=== PATIENT | female | born 1975 | race Caucasian/White ===

== ENCOUNTER 2024-08-27 22:48 | Emergency (ER) | payer MEDICARE, MEDICAID, SELFPAY ==
--- NOTE | 2024-08-27 | ECG_ITS ---
Test Reason : PALPITATIONS Blood Pressure : */* mmHG Vent. Rate : 97 BPM Atrial Rate : 97 BPM P-R Int : 146 ms QRS Dur : 80 ms QT Int : 336 ms P-R-T Axes : 58 -5 15 degrees QTcB Int : 426 ms Normal sinus rhythm Nonspecific T wave abnormality Abnormal ECG When compared with ECG of 03-Jun-2017 06:57, T wave inversion now evident in Lateral leads Referred By: Generic ED Physician Electronically Signed By: LILIANA BURNETT
[2024-08-27 22:51] VITALS: BP 186/85; PULSE 106; RESP 18; TEMP 36.7; O2SAT 95; BMI 37.2
[2024-08-27 23:11] LABS: MANUAL DIFF FLAG NO
[2024-08-27 23:12] LABS: Basophils Percent Auto 0.5 % (0-2); Eosinophils Percent Auto 0.3 % (0-4); Hemoglobin 13.5 g/dl (12.0-16.0); Imm Gran Abs Auto 0.02 X10*3/uL (0.00-0.03); Imm Gran Pct Auto 0.3 % (0.0-0.4); Lymphocytes Absolute Auto 1.8 X10*3/uL (1.2-4.9); Lymphocytes Percent Auto 24.8 % (20-40); Mean Corpuscular HGB Conc 33.8 g/dl (31.0-35.0); Mean Corpuscular Hemoglobin 26.7 pg (27.0-33.0); Mean Corpuscular Volume 79.2 fL (80.0-98.0); Mean Platelet Volume 9.2 fL (9.4-12.3); Monocytes Absolute Auto 0.4 X10*3/uL (0.1-1.2); Monocytes Percent Auto 5.8 % (2-11); Neutrophils Percent Auto 68.3 % (45-73); Platelet Count 365 X10*3/uL (160-400); Red Blood Count 5.05 X10*6/uL (4.20-5.50); White Blood Count 7.4 X10*3/uL (4.8-10.8)
[2024-08-27 23:27] LABS: Alanine Aminotransferase 15 U/L (0-31); Albumin Level 4.4 g/dL (3.5-5.0); Alkaline Phosphatase 83 U/L (39-117); Anion Gap 12 (12-20); Aspartate Amino Transferase 23 U/L (5-31); Bilirubin Total 0.4 mg/dL (0.0-1.0); Blood Urea Nitrogen 6 mg/dL (9-16); Calcium 9.5 mg/dL (8.4-10.2); Carbon Dioxide 28 mmol/L (22-29); Chloride 105 mmol/L (96-108); Creatinine Clr Calc Pharmacy 93.3; Estimated Glomerular Filt Rate > 60; Glucose Random 115 mg/dL (60-115); Lipase 22 U/L (8-78); Magnesium 2.2 mg/dL (1.6-2.6); Potassium 4.1 mmol/L (3.3-5.1); Sodium 141 mmol/L (135-145); Total Protein 7.5 g/dL (6.5-8.0)
[2024-08-27 23:38] LABS: Troponin-I High Sensitivity < 2.7 ng/L (<3.5-17.0)
[2024-08-28] MEDS: Acetaminophen 325 MG TABLET 975 MG PO (01:41)
[2024-08-28 02:28] VITALS: BP 156/89; PULSE 100; RESP 20; TEMP 36.4; O2SAT 99
--- OUTSIDE RECORDS SUMMARY | 2024-08-28 02:48 | XMS_ITS ---
Author Name [facility] Organization Unknown History of Medication Use Medication Directions Dispensed Refills Start Date End Date Stat MAGNESIUM CITRATE ORAL Take by mouth. 06/25/2024 08/18/9999 active phenazopyridine (PYRIDIUM) 100 mg tablet Take 1 tablet (100 mg total) by mouth. 06/25/2024 08/18/9999 active ondansetron (ZOFRAN) 4 mg tablet Take 1 tablet (4 mg total) by mouth every 8 (eight) hours if needed. 06/25/2024 08/18/9999 active naproxen (NAPROSYN) 500 mg tablet Take 1 tablet (500 mg total) by mouth. 06/25/2024 08/18/9999 active aluminum-magnesium hydroxide-simethicone (MAALOX) 200-200-20 mg/5 mL suspension Take 15 mL by mouth. 06/25/2024 08/18/9999 active pantoprazole (PROTONIX) 40 mg EC tablet Take 1 tablet (40 mg total) by mouth. 06/25/2024 08/18/9999 active tiZANidine (ZANAFLEX) 2 mg tablet Take 1 tablet (2 mg total) by mouth. 06/25/2024 08/18/9999 active metoprolol succinate (TOPROL-XL) 25 mg 24 hr tablet Take 0.5 tablets (12.5 mg total) by mouth. 06/25/2024 08/18/9999 active oxyCODONE-acetaminophe n (PERCOCET) 5-325 mg per tablet Take 1 tablet by mouth. 06/25/2024 08/18/9999 active Problems Problem Status Onset Date Problem Type Date of Resolution Source Angio-edema active 2020-06-30 ProblemAct [facility] Chronic right-sided low back pain with right-sided sciatica active 2019-12-05 ProblemAct [facility] Obesity active 2020-12-07 ProblemAct [facility] Osteoarthritis of lumbar spine active 2023-03-01 ProblemAct [facility] Epigastric pain active 2024-06-[address] [facility] Mixed hyperlipidemia active 2023-03-01 ProblemAct [facility] Urinary tract infection without hematuria, site unspecified active EncounterDiagnosisAct [facility] LEOBARDO (obstructive sleep apnea) active 2015-09-07 ProblemAct [facility] Pelvic pain active 2021-04-11 ProblemAct [facility] 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 ProblemAct [facility] Recurrent urticaria active 2020-06-30 ProblemAct [facility] Hypothyroidism active 2015-09-07 ProblemAct [facility] Hypertension active 2015-09-07 ProblemAct [facility] Chronic headache disorder active 2017-06-10 ProblemAct [facility] Seasonal allergic conjunctivitis active 2020-06-30 ProblemAct [facility] IBS (irritable bowel syndrome) active 2015-09-09 ProblemAct [facility] GERD (gastroesophageal reflux disease) active 2017-03-04 ProblemAct [facility] Seasonal allergies active 2020-02-02 ProblemAct [facility] Seasonal allergic rhinitis due to pollen active 2020-06-30 ProblemAct [facility] Lumbar disc herniation with radiculopathy active 2017-09-06 ProblemAct [facility] Syncope and collapse active 2023-06-03 ProblemAct [facility] Microcytic anemia active 2018-05-05 ProblemAct [facility] Diverticulosis active 2008-02-09 ProblemAct [facility] Carpal tunnel syndrome active 2017-05-08 ProblemAct [facility] Balance problem active 2023-12-[address] [facility] Bacterial vaginosis active 2021-04-11 ProblemAct [facility] ADD (attention deficit disorder) active 2015-09-07 ProblemAct [facility] Major depression active 2015-09-07 ProblemAct C [facility] Palpitation active 2023-05-29 ProblemAct [facility] Immunizations Vaccine Date Source Lot Number Status Influenza trivalent, 0.5mL, preservative free (Fluarix; FluLaval; Fluzone) ages 6mo and older (Afluria) 3 years and older [facility] B (Gmgzoer-Y-Zfzts , Recombivax HB-Adult) 19yo and older 02/22/2006 [facility] [id number] complet ed Influenza trivalent, 0.5mL, preservative free (Fluarix; FluLaval; Fluzone) ages 6mo and older (Afluria) 3 years and older 05/20/2013 [facility] completed Influenza trivalent, 0.5mL, preservative free (Fluarix; FluLaval; Fluzone) ages 6mo and older (Afluria) 3 years and older 05/08/2011 [facility] completed Td Tetanus diptheria (Tdvax) 7yo and older 07/27/2009 [facility] completed PPD Test 12/09/2007 [facility] [id number] completed Influenza trivalent, 0.5mL, preservative free (Fluarix; FluLaval; Fluzone) ages 6mo and older (Afluria) 3 years and older 08/15/2012 [facility] Tdap Tetanus diptheria acell ular pertussis (Boostrix; Adacel) 7yo and older 10/17/2011 [facility] completed Pneumococcal polysaccharide 23 valent (Pneumovax 23) 2yo and older 10/30/2010 [facility] com pleted PPD Test 02/22/2006 [facility] [id number] completed Td Tetanus diptheria (Tdvax) 7yo and older 02/27/2020 [facility] [id number] completed Influenza trivalent, 0.5mL, preservative free (Fluarix; FluLaval; Fluzone) ages 6mo and older (Afluria) 3 years and older 08/25/2014 [facility]
[2024-08-28 03:34] VITALS: BP 157/94; PULSE 90
[2024-08-28 03:35] VITALS: BP 152/97; BP 169/100; PULSE 103; PULSE 95
--- NOTE | 2024-08-28 03:44 | ED.ARRPALP ---
HPI - Arrhythmia/Palpitations General Chief Complaint: Arrhythmia/Palpitations Stated Complaint: irregular heart beat Time Seen by Provider: 08/28/24 03:07 Source: patient Mode of arrival: ambulatory Limitations: no limitations History of Present Illness ED Provider: HPI narrative: Patient with palpitation episodes been seen by malt specifications control assistant questionable POTS started on metoprolol comes here for similar episodes of palpitation heart rate ranging between 120-130 no dizziness no passing out episode Related Data Allergies Allergy/AdvReac Type Severity Reaction Status Date / Time benzoin [BENZOIN] Allergy Intermediate BURNING Verified 08/27/24 22:55 Strip Ease Adhesive Remover Allergy Unknown Unknown Uncoded 08/27/24 22:55 Review of Systems Review of Systems: Yes all other systems are reviewed and are negative [facility] Social History Social History Advance Directives: No Do you have a plan to hurt others: No Plan Physical Exam Vital Signs: Vital Signs: Last Vital Signs Temp 97.9 F 08/28/24 03:54 Pulse 103 H 08/28/24 03:54 Resp 20 08/28/24 03:54 BP 169/100 H 08/28/24 03:54 Pulse Ox 98 08/28/24 03:54 O2 Del Method Room Air 08/28/24 03:54 BMI result Body Mass Index 37.2 Appearance: Alert. Oriented X3. No acute distress. Eyes: PERRLA, No Nystagmus ENT: Pharynx normal. Oral Mucosa moist Neck: Normal inspection. Neck supple. CVS: Normal heart rate and rhythm. Pulses normal. Respiratory: No respiratory distress. Equal air entry bilateral, no wheezing/rales/rhonchi Abdomen: Soft and nontender. Bowel sounds are present, no mass palpable, no CVA tenderness Skin: Skin warm and dry. Normal skin color. Normal skin turgor. Extremities: No lower extremity edema. No calf tenderness Neuro: Oriented X 3. No motor deficit. No sensory deficit.No cerebellar signs , cranial nerves II-XII intact Medications Administered Discontinued Medications Generic Name Dose Route Start Last Admin Trade Name Freq PRN Reason Stop Dose Admin Acetaminophen 975 mg 08/28/24 01:40 08/28/24 01:41 Acetaminophen 325 Mg Tablet PO 08/28/24 01:41 975 mg ONCE ONE Administration Medical Decision Making Medical Decision Making [facility] Narrative: Patient with orthostatic tachycardia likely POTS syndrome already on metoprolol and advised to follow with malt specifications control assistant and drink plenty of fluids Lab Data MDM Lab Attestation statement: I reviewed the patient's lab results. 08/27/24 22:59 08/27/24 22:59 Labs: Lab Results 08/27/24 Range/Units 22:59 WBC 7.4 (4.8-10.8) X10*3/uL RBC 5.05 (4.20-5.50) X10*6/uL Hgb 13.5 (12.0-16.0) g/dl Hct 40.0 (37.0-47.0) % MCV 79.2 L (80.0-98.0) fL MCH 26.7 L (27.0-33.0) pg MCHC 33.8 (31.0-35.0) g/dl RDW 13.0 (11.0-16.0) % Plt Count 365 (160-400) X10*3/uL MPV 9.2 L (9.4-12.3) fL Immature Gran % (Auto) 0.3 (0.0-0.4) % Neut % (Auto) 68.3 (45-73) % Lymph % (Auto) 24.8 (20-40) % [place] % (Auto) 5.8 (2-11) % Eos % (Auto) 0.3 (0-4) % Baso % (Auto) 0.5 (0-2) % Lymph # (Auto) 1.8 (1.2-4.9) X10*3/uL [place] # (Auto) 0.4 (0.1-1.2) X10*3/uL Eos # (Auto) 0.0 (0.0-0.4) X10*3/uL Baso # (Auto) 0.0 (0.0-0.2) X10*3/uL Abs Immat Gran (auto) 0.02 (0.00-0.03) X10*3/uL Absolute Neuts (auto) 5.0 (2.0-8.3) x10*3/uL Absolute Nucleated RBC 0.000 (0.0-0.012) X10*3/uL Nucleated RBC % (auto) 0.0 (0.0-0.2) /100WBC Sodium 141 (135-145) mmol/L Potassium 4.1 (3.3-5.1) mmol/L Chloride 105 (96-108) mmol/L Carbon Dioxide 28 (22-29) mmol/L Anion Gap 12 (12-20) BUN 6 L (9-16) mg/dL Creatinine 0.69 (0.5-1.4) mg/dL Estim Creat Clear Calc 93.3 Estimated GFR > 60 Random Glucose 115 (60-115) mg/dL Calcium 9.5 (8.4-10.2) mg/dL Magnesium 2.2 (1.6-2.6) mg/dL Total Bilirubin 0.4 (0.0-1.0) mg/dL AST 23 (5-31) U/L ALT 15 (0-31) U/L Alkaline Phosphatase 83 (39-117) U/L Troponin I High Sens < 2.7 (<3.5-17.0) ng/L Total Protein 7.5 (6.5-8.0) g/dL Albumin 4.4 (3.5-5.0) g/dL Lipase 22 (8-78) U/L Independent Interpretation Interpretation: Normal sinus rhythm heart rate 97 beats per minute normal intervals normal axis no acute ST-T no acute ischemia Discharge Plan Discharge Clinical Impression: Palpitations, POTS (postural orthostatic tachycardia syndrome) Patient Disposition: Home, Self-Care Instructions: Heart Palpitations (DC) Additional Instructions: Likely have POTS Drink plenty of fluids and continue metoprolol and follow up malt specifications control assistant Interventions: ED Discharge Assessment Last Done: 08/28/24 03:54 Discharge Date/Time: 08/28/24 03:55 Print Language: Slovak
[2024-08-28 03:54] VITALS: BP 169/100; PULSE 103; RESP 20; TEMP 36.6; O2SAT 98
== END 2024-08-28 03:55 | disposition home or self-care (01) ==
PROVIDERS: Emergency Provider Internal Medicine; PCP Internal Medicine
DX: I49.9 Cardiac arrhythmia, unspecified (principal); G90.A Postural orthostatic tachycardia syndrome [POTS]; R00.2 Palpitations; Z79.899 Other long term (current) drug therapy
CPT/HCPCS: 36415; 80053; 83690; 83735; 84484; 85025; 93005; 99284

== ENCOUNTER → 2024-08-27 22:57 | Outpatient (BNV) | payer MEDICARE, MEDICAID, SELFPAY | PROVIDERS: Emergency Provider Internal Medicine; PCP Internal Medicine; Visit Provider Internal Medicine | DX: R94.31 Abnormal electrocardiogram [ECG] [EKG] (principal) | CPT/HCPCS: 93010 ==

== ENCOUNTER 2025-03-08 10:10 | Emergency (ER) | payer OTHER, SELFPAY ==
--- NOTE | ~2025-03-08 | XR_ITS ---
EXAMINATION: XR CHEST 1 VIEW HISTORY: chest pain COMPARISON: Comparison is made with the prior examination dated 01/14/2018. FINDINGS: A single AP portable view of the chest performed at 11:29 AM is submitted. The lungs are expanded and clear. There is no pleural effusion, pneumothorax, or pulmonary vascular congestion. The heart is normal in size. The bones are intact. XR/XR chest 1V IMPRESSION: No acute cardiopulmonary abnormality. Electronically signed by: Mikel Rider MD 03/08/2025 11:29 AM EDT
--- NOTE | 2025-03-08 10:17 | ECG_ITS ---
Test Reason : sob Blood Pressure : */* mmHG Vent. Rate : 93 BPM Atrial Rate : 93 BPM P-R Int : 152 ms QRS Dur : 80 ms QT Int : 318 ms P-R-T Axes : 44 4 22 degrees QTcB Int : 395 ms Normal sinus rhythm Nonspecific T wave abnormality Abnormal ECG When compared with ECG of 27-Aug-2024 22:57, Nonspecific T wave abnormality has replaced inverted T waves in Lateral leads Referred By: Generic ED Physician Electronically Signed By: Mg Chan
[2025-03-08 10:33] VITALS: BP 148/89; PULSE 91; RESP 19; TEMP 37.1; O2SAT 94; BMI 38.4
[2025-03-08 10:39] VITALS: BP 148/89; PULSE 91; PULSE 92; RESP 19; TEMP 37.1; O2SAT 94
--- NOTE | 2025-03-08 10:57 | PC.NURSE ---
49 F presents to Ed with 2/10 R sided chest pain, SOB since this morning. Hx palpitations. Sts has felt dizzy today and feels off. A+OX4 and ambulatory. RR even and unlabored, lung sounds clear.
--- NOTE | 2025-03-08 10:57 | ED.CHESTPAIN ---
HPI - Chest Pain General Chief Complaint: Chest Pain Stated Complaint: dizziness and heart palpitation Time Seen by Provider: 03/08/25 10:57 Source: patient and RN notes reviewed Mode of arrival: ambulatory Limitations: no limitations History of Present Illness ED Provider: Theodora Jay PA-C HPI narrative: 49-year-old female history significant for GERD presenting to the emergency department today for evaluation of chest discomfort and palpitations with lightheadedness that isn't has been occurring over the last day. Few days ago patient was experiencing some indigestion and took some Maalox and it feel better this occurred after having a chicken wrap. Similar feeling occurred around 04:00 this morning that lasted for around a minute substernal region that did not radiate anywhere which patient is having a hard time describing it was not sharp. She pushed on her chest which did not make it worse but as it only lasted a minute and went away completely she was able to fall back asleep. When she woke up this morning she had her normal routine she felt healthy and then while she was at work sitting down she suddenly fell off almost like out of body with lightheadedness was then was associated with palpitations the lasted for few sec. patient got up to go to the bathroom and had both avoid and then a bowel movement in an upon walking back to go back to her desk she felt lightheaded again but not in the sense that she felt like she was going to pass out or that the room is spinning. Palpitations occurred again. Patient has been told in the past that she had anemia but not needed to be treated she followed up with a otr flatbed driver who ruled out any kidney causes of it she was told that she had a massive for in her kidney but was not concerning she has not followed up on this. Patient does endorse more polyuria polydipsia but no dysuria or vaginal symptoms or concern for any STDs. She denies feeling sick she has no fevers and no chills and no night sweats no coughing or shortness of breath no abdominal discomfort no nausea or vomiting no diarrhea. No recent falls or trauma no recent infections. Last night she had a meal and felt fine before going to bed. She feels 2/10 chest pain central since this morning and came here for this reason. It is not worsened by deep inspiration but mother reproducible symptom would be the lightheadedness with changing positions. ED chart was reviewed back in August of this year patient was seen in the ED for palpitations in this note it was noted that the dental nurse saw her and had diagnosed her with questionable pots and started her on metoprolol. Patient continues to take this medication Related Data Allergies Allergy/AdvReac Type Severity Reaction Status Date / Time benzoin (BENZOIN) Allergy Intermediate BURNING Verified 03/08/25 10:35 Strip Ease Adhesive Remover Allergy Unknown Unknown Uncoded 03/08/25 10:35 Review of Systems Review of Systems: Yes all other systems are reviewed and are negative PMFSH Past Medical History Attestation statement: The following information was validated with the patient. Source: old records reviewed and nursing notes reviewed Social History Social History Smoked in Last 30 Days: No Use of substances other than those prescribed or required for medical reasons: No Advance Directives: No Advance Directives Information Provided: Yes Do you have a plan to hurt others: No Plan Patient : No Physical Exam Exam: Exam: General: Appears in no acute distress, appears well nourished body habitus is overweight, appears stated age. No septic or ill-appearing. Vitals reviewed normal, PMH/Social and Surgical hx reviewed including allergies and current medications. - reviewed for prior visits here and reviewed as it pertained to similar chief complaint discussed in HPI. Head: Normocephalic, no obvious trauma or skin lesions noted. Eyes: EOMI, conjunctivae and sclerae are clear not pale ENMT: moist oral mucosa, uvula is midline no trismus Neck: trachea midline no lymphadenopathy Cardiovascular: peripheral perfusion normal, Regular heart rate regular rhythm Respiratory: no respiratory distress no chest wall tenderness lungs clear to auscultation bilaterally Abdomen: nondistended obese nontender Extremities: warm and moving without difficulty Psych: Cooperative Neuro: Alert and oriented. Vital Signs: Vital Signs: Last Vital Signs Temp 98.2 F 03/08/25 11:49 Pulse 89 03/08/25 11:49 Resp 13 03/08/25 11:49 BP 148/89 H 03/08/25 11:49 Pulse Ox 96 03/08/25 11:49 O2 Del Method Room Air 03/08/25 11:49 BMI result Body Mass Index 38.4 Medications Administered Discontinued Medications Generic Name Dose Route Start Last Admin Trade Name Freq PRN Reason Stop Dose Admin Sodium Chloride 1,000 mls @ 999 mls/hr 03/08/25 12:42 03/08/25 13:54 Ns IV 03/08/25 13:42 Infused .Q1H1M ONE Infusion Medical Decision Making Medical Decision Making [facility] Narrative: Well-appearing 14-year-old female with history of POTS and GERD presenting to the emergency department today for evaluation of palpitations and chest discomfort. History and physical as above. Upon arrival to ED patient is afebrile saturating 94% on room air, appearing in no acute respiratory cardiac distress. Upon her physical exam moving her from a supine to sitting position she did become acutely lightheaded. She stated that it has been her feelings all along. This could be her POTS but could not rule out acute dehydration despite moist mucous membranes in her voiding regularly. Considered anemia as well as electrolyte imbalance and cardiac arrhythmia. Patient has been placed on a property assessment monitor with labs initiated. Pulse ox retaken (94 % on RA initial vitals), fingers appear cold but after warming up the index finger was able to get 96 oxygen on room air was 80 pulse. 1240: Patient was re-evaluated at bedside oxygen in the is noted to be 100% on room air with pulse of 80 normotensive. Patient went to change positions again it felt dizzy will give her IV fluids. Slight hemoconcentration noted on the labs but no obvious anemia otherwise or leukocytosis. No electrolyte imbalance, kidney or liver dysfunction. Initial troponin is negative but given onset of symptoms less than 3 hours ago we will trend and repeat. Next blood draw anticipated to be at 14:00. Discussed this with the patient at bedside who agrees to the plan. 1345: Repeat trop ordered and added on D-dimer. 1510: trop and D dimer still pending, pt is asx. 1536: Ddimer neg, can rule out PE. top negative and flat- patient is stable to discharge. No life-threatening causes were identified for her symptoms today most likely mild dehydration and POTS she is given reasons to seek medical attention again it as well as to follow up with her primary care provider patient demonstrated verbal understanding of this and agrees she was discharged home stable Differential Diagnosis Differential Diagnoses: The differential diagnosis associated with the presentation includes See [facility] Admission/Observation Consideration of admission/observation: Escalation of care including admission/observation considered Patient would have been admitted to the hospital had her work up had any findings where hospital admission was appropriate and her clinical presentation warranted hospital admission. Lab Data [facility] Lab Attestation statement: I reviewed the patient's lab results. 03/08/25 11:09 03/08/25 11:09 Labs: Lab Results 03/08/25 03/08/25 Range/Units 11:09 14:46 WBC 7.1 (4.8-10.8) X10*3/uL RBC 5.69 H (4.20-5.50) X10*6/uL Hgb 15.2 (12.0-16.0) g/dl Hct 45.7 (37.0-47.0) % MCV 80.3 (80.0-98.0) fL MCH 26.7 L (27.0-33.0) pg MCHC 33.3 (31.0-35.0) g/dl RDW 13.1 (11.0-16.0) % Plt Count 304 (160-400) X10*3/uL MPV 10.1 (9.4-12.3) fL Immature Gran % (Auto) 0.3 (0.0-0.4) % Neut % (Auto) 75.9 H (45-73) % Lymph % (Auto) 17.8 L (20-40) % [place] % (Auto) 5.0 (2-11) % Eos % (Auto) 0.3 (0-4) % Baso % (Auto) 0.7 (0-2) % Lymph # (Auto) 1.3 (1.2-4.9) X10*3/uL [place] # (Auto) 0.4 (0.1-1.2) X10*3/uL Eos # (Auto) 0.0 (0.0-0.4) X10*3/uL Baso # (Auto) 0.1 (0.0-0.2) X10*3/uL Abs Immat Gran (auto) 0.02 (0.00-0.03) X10*3/uL Absolute Neuts (auto) 5.4 (2.0-8.3) x10*3/uL Absolute Nucleated RBC 0.000 (0.0-0.012) X10*3/uL Nucleated RBC % (auto) 0.0 (0.0-0.2) /100WBC D-Dimer High Sensitivty < 150 NG/ML Sodium 144 (135-145) mmol/L Potassium 3.5 (3.3-5.1) mmol/L Chloride 104 (96-108) mmol/L Carbon Dioxide 28 (22-29) mmol/L Anion Gap 16 (12-20) BUN 10 (9-16) mg/dL Creatinine 0.71 (0.5-1.4) mg/dL Estim Creat Clear Calc 91.4 Estimated GFR > 60 Random Glucose 98 (60-115) mg/dL Calcium 9.7 (8.4-10.2) mg/dL Total Bilirubin 0.5 (0.0-1.0) mg/dL AST 22 (5-31) U/L ALT 25 (0-31) U/L Alkaline Phosphatase 97 (39-117) U/L Troponin I High Sens < 2.7 (<3.5-17.0) ng/L Total Protein 8.1 H (6.5-8.0) g/dL Albumin 5.1 H (3.5-5.0) g/dL Independent Interpretation I performed an independent interpretation of an: EKG and Plain X-Ray Radiology Impression Discussion of test interpretation with radiology: I have reviewed the radiologist's reading. Chronic Conditions Patient?s care impacted by: Other (POTS) Discharge Plan Discharge Clinical Impression: Orthostatic dizziness, Mild dehydration Chest pain Qualifiers: Chest pain type: other chest pain Qualified Code(s): R07.89 - Other chest pain Patient Disposition: Home, Self-Care Instructions: Chest Pain (DC), POTS (Postural Orthostatic Tachycardia Syndrome) (ED) Additional Instructions: You were seen in the emergency department today feeling dizzy with chest pain. He had a cardiac workup along with labs that showed no evidence of acute ischemia or pulmonary embolism or obvious chest mass or pneumothorax. You had a normal EKG with no evidence for life-threatening arrhythmia or ischemia. There was no evidence for anemia or kidney or liver dysfunction either or no acute signs of infection. You have history of POTS sometimes the dizziness can be of sudden onset with a without provocation of positional changes. You received IV fluids while here. No life-threatening causes identified. Symptoms today hope you continue to feel better. For any new or concerning symptoms please return to the emergency department and follow up with your primary care provider. Referrals: Larry Garcia MD [Primary Care Provider, Internal Medicine] Referral Note: ED follow-up chest pain and lightheadedness Stand Alone Forms: Work/School Release Print Language: [place]
[2025-03-08 11:14] LABS: MANUAL DIFF FLAG NO
[2025-03-08 11:22] LABS: Hematocrit 45.7 % (37.0-47.0); Hemoglobin 15.2 g/dl (12.0-16.0); Imm Gran Abs Auto 0.02 X10*3/uL (0.00-0.03); Imm Gran Pct Auto 0.3 % (0.0-0.4); Lymphocytes Absolute Auto 1.3 X10*3/uL (1.2-4.9); Mean Corpuscular HGB Conc 33.3 g/dl (31.0-35.0); Mean Corpuscular Hemoglobin 26.7 pg (27.0-33.0); Mean Corpuscular Volume 80.3 fL (80.0-98.0); NRBC Abs Auto 0.000 X10*3/uL (0.0-0.012); NRBC Pct Auto 0.0 /100WBC (0.0-0.2); Platelet Count 304 X10*3/uL (160-400); Red Blood Count 5.69 X10*6/uL (4.20-5.50); White Blood Count 7.1 X10*3/uL (4.8-10.8)
[2025-03-08 11:30] LABS: Alanine Aminotransferase 25 U/L (0-31); Albumin Level 5.1 g/dL (3.5-5.0); Alkaline Phosphatase 97 U/L (39-117); Anion Gap 16 (12-20); Aspartate Amino Transferase 22 U/L (5-31); Blood Urea Nitrogen 10 mg/dL (9-16); Calcium 9.7 mg/dL (8.4-10.2); Carbon Dioxide 28 mmol/L (22-29); Chloride 104 mmol/L (96-108); Creatinine Clr Calc Pharmacy 91.4; Estimated Glomerular Filt Rate > 60; Potassium 3.5 mmol/L (3.3-5.1); Sodium 144 mmol/L (135-145); Total Protein 8.1 g/dL (6.5-8.0)
[2025-03-08 11:38] LABS: Troponin-I High Sensitivity < 2.7 ng/L (<3.5-17.0)
[2025-03-08 11:49] VITALS: BP 148/89; PULSE 89; RESP 13; TEMP 36.8; O2SAT 96
--- OUTSIDE RECORDS SUMMARY | 2025-03-08 12:21 | XMS_ITS | Data Portability ---
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 Plan of Treatment Reminders Order Date Submit Date Provider Last Modified By Organization Details Last Modified Time Details Appointments None recorded. Lab CBC w/ auto diff 2022 023 [facility] (Lab), [address], [place], [address], 3 17:20:29 CMP, serum or plasma 2022 023 [facility] (Lab), [address], [place], [address], 3 17:42:51 vitamin D, 25-hydroxy, total, serum 2022 023 [facility] (Lab), [address], [place], [address], 3 18:02:49 vitamin B12 + folate, serum or blood 2022 023 [email or web address] [facility] (Lab), [address], [place], [address], 3 11:21:53 T4, free, serum 2022 023 [facility] (Lab), [address], [place], [address], 3 18:02:53 iron + TIBC + ferritin, serum [email or web address] (Lab), [address], [place], [address], 3 11:22:00 T3, free, serum or plasma 2022 023 [facility] (Lab), [address], [place], [address], 3 10:25:13 lipid panel, serum 2022 023 [facility] (Lab), [address], [place], [address], 3 17:42:52 glycohemogl obin, total, blood 2022 023 [facility] (Lab), [address], [place], [address], 3 09:23:40 TSH, serum or plasma 2022 023 [facility] (Lab), [address], [place], [address], 3 18:02:54 Referral None recorded. Procedures None recorded. Surgeries None recorded. Imaging None recorded. Medication Orders Medrol (Julian) 4 mg tablets in a dose pack [address] [facility] #[id number], [address] [place], [address], 3 10:36:09 baclofen 10 mg tablet [address] [facility]armacy #[id number], [address] [place], [address], 3 10:36:09 Kenalog 40 mg/mL suspension for injection 2022 023 Not available 3 10:12:59 ferrous fumarate 324 mg (106 mg iron) tablet 2022 023 [facility] [address] [place], [address], 3 10:53:01 tamsulosin 0.4 mg capsule 2021 022 [facility] [address] [place], [address], 3 10:19:35 fluticasone propionate 50 mcg/actuati on nasal spray,suspe nsion 2021 [facility] [address] [place], [address], 2 11:55:59 losartan 100 mg tablet 2021 022 [facility] [address] [place], [address], 2 11:55:59 hydrochloro thiazide 25 mg tablet 2021 022 [facility] [address] [place], [address], 2 11:55:58 Synthroid 125 mcg tablet 2021 022 [facility] [address] [place], [address], 2 11:55:59 ferrous fumarate 325 mg (106 mg iron) tablet 2021 022 [email or web address] [facility], [address] [place], [address], 3 15:03:04 cetirizine 10 mg capsule 2021 022 [email or web address] [facility]/Ph[facility]acy #5591, [address] [place], [address], 3 15:02:43 Patient TargetsNo targets recorded. Patient InstructionsNo instructions recorded. Reason for Referral None Reported. Results Created Date Observation Date Name Description Value Unit Range Abnormal Flag Note LastModifiedBy Organization Detail LastModifiedTime 07/30/20 22 07/30/2022 CBC WITH DIF WBC 8.0 K/uL 4.5-13 .5 Not Available [facility] (Lab) [address], [place], [address], 07/30/2022 17:48:46 07/30/20 22 07/30/2022 CBC WITH DIF RBC 5.42 M/uL 4.00-5 .40 high Not Available [facility] (Lab) [address], [place], [address], 07/30/2022 17:48:46 07/30/20 22 07/30/2022 CBC WITH DIF HGB 14.5 g/dL 12.0-1 6.4 Not Available [facility] (Lab) [address], [place], [address], 07/30/2022 17:48:46 07/30/20 22 07/30/2022 CBC WITH DIF HCT 46.1 % 36.0-5 0.0 Not Available [facility] (Lab) [address], [place], [address], 07/30/2022 17:48:46 07/30/20 22 07/30/2022 CBC WITH DIF MCV 85.1 fL 83.0-9 6.0 Not Available [facility] (Lab) [address], [place], [address], 07/30/2022 17:48:46 07/30/20 22 07/30/2022 CBC WITH DIF MCH 26.8 pg 27.0-3 2.5 low Not Available [facility] (Lab) [address], [place], [address], 07/30/2022 17:48:46 07/30/20 22 07/30/2022 CBC WITH DIF MCHC 31.5 g/dL 32.2-3 5.5 low Not Available [facility] (Lab) [address], [place], [address], 07/30/2022 17:48:46 07/30/20 22 07/30/2022 CBC WITH DIF RDW 13.9 % 11.8-1 6.0 Not Available [facility] (Lab) [address], [place], [address], 07/30/2022 17:48:46 07/30/20 22 07/30/2022 CBC WITH DIF platelets 390 K/uL 150-45 0 Not Available [facility] (Lab) [address], [place], [address], 07/30/2022 17:48:46 07/30/20 22 07/30/2022 CBC WITH DIF MPV 10.3 fL 9.4-12 .3 Not Available [facility] (Lab) [address], [place], [address], 07/30/2022 17:48:46 07/30/20 22 07/30/2022 CBC WITH DIF differential SEE BELOW Nallely FONTAINE AL Not Available [facility] (Lab) [address], [place], [address], 07/30/2022 17:48:46 07/30/20 22 07/30/2022 CBC WITH DIF neutrophil 62.9 % Not Available [facility] (Lab) [address], [place], [address], 07/30/2022 17:48:46 07/30/20 22 07/30/2022 CBC WITH DIF absolute neutrophil 5.0 K/uL 1.6-7. 6 Not Available [facility] (Lab) [address], [place], [address], 07/30/2022 17:48:46 07/30/20 22 07/30/2022 CBC WITH DIF lymphocyte 29.1 % Not Available [facility] (Lab) [address], [place], [address], 07/30/2022 17:48:46 07/30/20 22 07/30/2022 CBC WITH DIF absolute lymphocyte 2.3 K/uL 1.1-5. 1 Not Available [facility] (Lab) [address], [place], [address], 07/30/2022 17:48:46 07/30/20 22 07/30/2022 CBC WITH DIF monocyte 5.7 % Not Available [facility] (Lab) [address], [place], [address], 07/30/2022 17:48:46 07/30/20 22 07/30/2022 CBC WITH DIF absolute monocyte 0.5 K/uL 0.0-1. 2 Not Available [facility] (Lab) [address], [place], [address], 07/30/2022 17:48:46 07/30/20 22 07/30/2022 CBC WITH DIF eosinophil 1.0 % Not Available [facility] (Lab) [address], [place], [address], 07/30/2022 17:48:46 07/30/20 22 07/30/2022 CBC WITH DIF absolute eosinophil 0.1 K/uL 0.0-0. 7 Not Available [facility] (Lab) [address], [place], [address], 07/30/2022 17:48:46 07/30/20 22 07/30/2022 CBC WITH DIF basophil 0.9 % Not Available [facility] (Lab) [address], [place], [address], 07/30/2022 17:48:46 07/30/20 22 07/30/2022 CBC WITH DIF NRBC 0 % 0-10 Not Available [facility] [address], [place], [address], 07/30/2022 17:48:46 07/30/20 22 07/30/2022 CBC WITH DIF immature granulocytes 0.4 % Not Available [facility] [address], [place], [address], 07/30/2022 17:48:46 07/30/20 22 07/30/2022 CBC WITH DIF absolute immature granulocytes 0 K/uL Not Available [facility] ([facility] [address], [place], [address], 07/30/2022 17:48:46 07/30/20 22 07/30/2022 COMPR EHENS MERCED METAB OLIC PANEL Na 137 mmol/ L 133-14 5 Not Available [facility] (Lab) [address], [place], [address], 07/30/2022 19:05:57 07/30/20 22 07/30/2022 COMPR EHENS MERCED METAB OLIC PANEL K 3.9 mmol/ L 3.8-5. 3 Not Available [facility] (Lab) [address], [place], [address], 07/30/2022 19:05:57 07/30/20 22 07/30/2022 COMPR EHENS MERCED METAB OLIC PANEL cL 100 mmol/ L 102-11 0 low Not Available [facility] (Lab) [address], [place], [address], 07/30/2022 19:05:57 07/30/20 22 07/30/2022 COMPR EHENS MERCED METAB OLIC PANEL CO2 31 mmol/ L 25-35 Not Available [facility] (Lab) [address], [place], [address], 07/30/2022 19:05:57 07/30/20 22 07/30/2022 COMPR EHENS MERCED METAB OLIC PANEL glucose 99 mg/dL 70-106 Not Available [facility] [address], [place], [address], 07/30/2022 19:05:57 07/30/20 22 07/30/2022 COMPR EHENS MERCED METAB OLIC PANEL BUN 14 mg/dL 9-23 Not Available [facility] [address], [place], [address], 07/30/2022 19:05:57 07/30/20 22 07/30/2022 COMPR EHENS MERCED METAB OLIC PANEL creatinine 0.7 mg/dL 0.8-1. 4 low Not Available [facility] (Lab) [address], [place], [address], 07/30/2022 19:05:57 07/30/20 22 07/30/2022 COMPR EHENS MERCED METAB OLIC PANEL estimated GFR >60 Na The GFR is estim ated using the MDRD study equat ion based on creat inine , sex, race and age. An eGFR of <60 ml/mi n is assoc iated with decre ased renal funct ion. The equat ion does not provi de a speci fic value great er than 60 ml/mi n. Not Available [facility] (Lab) [address], [place], [address], 07/30/2022 19:05:57 07/30/20 22 07/30/2022 COMPR EHENS MERCED METAB OLIC PANEL calcium 9.1 mg/dL 8.5-10 .4 Not Available [facility] (Lab) [address], [place], [address], 07/30/2022 19:05:57 07/30/20 22 07/30/2022 COMPR EHENS MERCED METAB OLIC PANEL corrected calcium 8.8 mg/dL Not Available [facility] (Lab) [address], [place], [address], 07/30/2022 19:05:57 07/30/20 22 07/30/2022 COMPR EHENS MERCED METAB OLIC PANEL albumin 4.4 g/dL 3.5-5. 0 Not Available [facility] (Lab) [address], [place], [address], 07/30/2022 19:05:57 07/30/20 22 07/30/2022 COMPR EHENS MERCED METAB OLIC PANEL total protein 7.7 g/dL 6.0-8. 0 Not Available [facility] (Lab) [address], [place], [address], 07/30/2022 19:05:57 07/30/20 22 07/30/2022 COMPR EHENS MERCED METAB OLIC PANEL Ag ratio 1.3 Na 0.8-2. 1 Not Available [facility] (Lab) [address], [place], [address], 07/30/2022 19:05:57 07/30/20 22 07/30/2022 COMPR EHENS MERCED METAB OLIC PANEL total bilirubin 0.2 mg/dL 0.4-1. 4 low Not Available [facility] (Lab) [address], [place], [address], 07/30/2022 19:05:57 07/30/20 22 07/30/2022 COMPR EHENS MERCED METAB OLIC PANEL AST 17 IU/L 16-40 Not Available [facility] [address], [place], [address], 07/30/2022 19:05:57 07/30/20 22 07/30/2022 COMPR EHENS MERCED METAB OLIC PANEL ALT 15 IU/L 8-43 Not Available [facility] [address], [place], [address], 07/30/2022 19:05:57 07/30/20 22 07/30/2022 COMPR EHENS MERCED METAB OLIC PANEL alk phos 71 IU/L 32-92 Not Available [facility] (Lab) [address], [place], [address], 07/30/2022 19:05:57 07/30/20 22 07/30/2022 COMPR EHENS MERCED METAB OLIC PANEL anion gap 10.8 Na 5.0-15 .0 Not Available [facility] (Lab) [address], [place], [address], 07/30/2022 19:05:57 07/30/20 22 07/30/2022 LIPID PROFI LE cholesterol 219 mg/dL 0-200 high Not Available [facility] (Lab) [address], [place], [address], 07/30/2022 19:05:58 07/30/20 22 07/30/2022 LIPID PROFI LE triglyceride 155 mg/dL 30-190 Not Available [facility] (Lab) [address], [place], [address], 07/30/2022 19:05:58 07/30/20 22 07/30/2022 LIPID PROFI LE HDL 56 mg/dL 34-88 Not Available [facility] [address], [place], [address], 07/30/2022 19:05:58 07/30/20 22 07/30/2022 LIPID PROFI LE LDL direct 152 mg/dL 0-130 high Not Available [facility] (Lab) [address], [place], [address], 07/30/2022 19:05:58 07/30/20 22 07/30/2022 IRON MELLY NG CAPAC ITY WITH TOTAL IRON iron 47 ug/dL 25-160 Not Available [facility] [address], [place], [address], 07/30/2022 19:06:00 07/30/20 22 07/30/2022 IRON MELLY NG CAPAC ITY WITH TOTAL IRON iron binding capacity 370 ug/dL 224-44 8 Not Available [facility] (Lab) [address], [place], [address], 07/30/2022 19:06:00 07/30/20 22 07/30/2022 IRON MELLY NG CAPAC ITY WITH TOTAL IRON %saturation 13 % 15-50 low Not Available [facility] (Lab) [address], [place], [address], 07/30/2022 19:06:00 07/30/20 22 07/30/2022 IRON MELLY NG CAPAC ITY WITH TOTAL IRON transferrin 264.5 mg/dL 192.0- 382.0 Not Available [facility] (Lab) [address], [place], [address], 07/30/2022 19:06:00 07/30/20 22 07/30/2022 DEA TIN ferritin 55.0 NG/mL 10.0-2 91.0 Not Available [facility] (Lab) [address], [place], [address], 07/30/2022 21:19:38 07/30/20 22 07/30/2022 FREE T4 free T4 1.21 NG/dL 0.60-1 .64 Bioti n scout ntrat ions >10ng /mL can lead to signi fican t (>10% ) posit merced bias in Free T4 resul ts. If unexp ected resul ts are obtai donald, and bioti n inter feren ce is suspe cted, TSH assay may provi de a halle r asses sment of thyro id funct ion as it is not susce ptibl e to bioti n inter feren ce. Not Available [facility] (Lab) [address], [place], [address], 07/30/2022 21:19:39 07/30/20 22 07/30/2022 TSH TSH 0.874 uIU/m L 0.340- 5.600 Not Available [facility] (Lab) [address], [place], [address], 07/30/2022 21:19:40 07/30/20 22 08/06/2022 FREE T3 free T3 3.3 pg/mL 2.3-4. 2 Not Available [facility] (Lab) [address], [place], [address], 08/06/2022 20:12:27 12/01/19 23 11/30/2022 CBC WITH DIF WBC 8.8 K/uL 4.5-13 .5 Not Available [facility] (Lab) [address], [place], [address], 11/30/2022 17:20:29 12/01/19 23 11/30/2022 CBC WITH DIF RBC 5.54 M/uL 4.00-5 .40 high Not Available [facility] (Lab) [address], [place], [address], 11/30/2022 17:20:29 12/01/19 23 11/30/2022 CBC WITH DIF HGB 14.7 g/dL 12.0-1 6.4 Not Available [facility] (Lab) [address], [place], [address], 11/30/2022 17:20:29 12/01/19 23 11/30/2022 CBC WITH DIF HCT 47.0 % 36.0-5 0.0 Not Available [facility] (Lab) [address], [place], [address], 11/30/2022 17:20:29 12/01/19 23 11/30/2022 CBC WITH DIF MCV 84.8 fL 83.0-9 6.0 Not Available [facility] (Lab) [address], [place], [address], 11/30/2022 17:20:29 12/01/19 23 11/30/2022 CBC WITH DIF MCH 26.5 pg 27.0-3 2.5 low Not Available [facility] (Lab) [address], [place], [address], 11/30/2022 17:20:29 12/01/19 23 11/30/2022 CBC WITH DIF MCHC 31.3 g/dL 32.2-3 5.5 low Not Available [facility] (Lab) [address], [place], [address], 11/30/2022 17:20:29 12/01/19 23 11/30/2022 CBC WITH DIF RDW 13.5 % 11.8-1 6.0 Not Available [facility] (Lab) [address], [place], [address], 11/30/2022 17:20:29 12/01/19 23 11/30/2022 CBC WITH DIF platelets 386 K/uL 150-45 0 Not Available [facility] (Lab) [address], [place], [address], 11/30/2022 17:20:29 12/01/19 23 11/30/2022 CBC WITH DIF MPV 10.7 fL 9.4-12 .3 Not Available [facility] (Lab) [address], [place], [address], 11/30/2022 17:20:29 12/01/19 23 11/30/2022 CBC WITH DIF differential SEE BELOW Na MARILYN FONTAINE AL Not Available [facility] (Lab) [address], [place], [address], 11/30/2022 17:20:29 12/01/19 23 11/30/2022 CBC WITH DIF neutrophil 67.3 % Not Available [facility] (Lab) [address], [place], [address], 11/30/2022 17:20:29 12/01/19 23 11/30/2022 CBC WITH DIF absolute neutrophil 5.9 K/uL 1.6-7. 6 Not Available [facility] (Lab) [address], [place], [address], 11/30/2022 17:20:29 12/01/19 23 11/30/2022 CBC WITH DIF lymphocyte 23.4 % Not Available [facility] (Lab) [address], [place], [address], 11/30/2022 17:20:29 12/01/19 23 11/30/2022 CBC WITH DIF absolute lymphocyte 2.1 K/uL 1.1-5. 1 Not Available [facility] (Lab) [address], [place], [address], 11/30/2022 17:20:29 12/01/19 23 11/30/2022 CBC WITH DIF monocyte 6.5 % Not Available [facility] (Lab) [address], [place], [address], 11/30/2022 17:20:29 12/01/19 23 11/30/2022 CBC WITH DIF absolute monocyte 0.6 K/uL 0.0-1. 2 Not Available [facility] (Lab) [address], [place], [address], 11/30/2022 17:20:29 12/01/19 23 11/30/2022 CBC WITH DIF eosinophil 1.8 % Not Available [facility] (Lab) [address], [place], [address], 11/30/2022 17:20:29 12/01/19 23 11/30/2022 CBC WITH DIF absolute eosinophil 0.2 K/uL 0.0-0. 7 Not Available [facility] (Lab) [address], [place], [address], 11/30/2022 17:20:29 12/01/19 23 11/30/2022 CBC WITH DIF basophil 0.7 % Not Available [facility] (Lab) [address], [place], [address], 11/30/2022 17:20:29 12/01/19 23 11/30/2022 CBC WITH DIF NRBC 0 % 0-10 Not Available [facility] [address], [place], [address], 11/30/2022 17:20:29 12/01/19 23 11/30/2022 CBC WITH DIF immature granulocytes 0.3 % Not Available [facility]) [address], [place], [address], 11/30/2022 17:20:29 12/01/19 23 11/30/2022 CBC WITH DIF absolute immature granulocytes 0 K/uL Not Available [facility] (Lab) [address], [place], [address], 11/30/2022 17:20:29 12/01/19 23 11/30/2022 COMPR EHENS MERCED METAB OLIC PANEL Na 139 mmol/ L 133-14 5 Not Available [facility] (Lab) [address], [place], [address], 11/30/2022 17:42:50 12/01/19 23 11/30/2022 COMPR EHENS MERCED METAB OLIC PANEL K 3.5 mmol/ L 3.8-5. 3 low Not Available [facility] (Lab) [address], [place], [address], 11/30/2022 17:42:50 12/01/19 23 11/30/2022 COMPR EHENS MERCED METAB OLIC PANEL cL 97 mmol/ L 102-11 0 low Not Available [facility] (Lab) [address], [place], [address], 11/30/2022 17:42:50 12/01/19 23 11/30/2022 COMPR EHENS MERCED METAB OLIC PANEL CO2 31 mmol/ L 25-35 Not Available [facility] (Lab) [address], [place], [address], 11/30/2022 17:42:50 12/01/19 23 11/30/2022 COMPR EHENS MERCED METAB OLIC PANEL glucose 98 mg/dL 70-106 Not Available [facility]) [address], [place], [address], 11/30/2022 17:42:50 12/01/19 23 11/30/2022 COMPR EHENS MERCED METAB OLIC PANEL BUN 12 mg/dL 9-23 Not Available [facility]) [address], [place], [address], 11/30/2022 17:42:50 12/01/19 23 11/30/2022 COMPR EHENS MERCED METAB OLIC PANEL creatinine 0.7 mg/dL 0.8-1. 4 low Not Available [facility] (Lab) [address], [place], [address], 11/30/2022 17:42:50 12/01/19 23 11/30/2022 COMPR EHENS MERCED METAB OLIC PANEL estimated GFR >60 Na The GFR is estim ated using the MDRD study equat ion based on creat inine , sex, race and age. An eGFR of <60 ml/mi n is assoc iated with decre ased renal funct ion. The equat ion does not provi de a speci fic value great er than 60 ml/mi n. Not Available [facility] (Lab) [address], [place], [address], 11/30/2022 17:42:50 12/01/19 23 11/30/2022 COMPR EHENS MERCED METAB OLIC PANEL calcium 9.8 mg/dL 8.5-10 .4 Not Available [facility] (Lab) [address], [place], [address], 11/30/2022 17:42:50 12/01/19 23 11/30/2022 COMPR EHENS MERCED METAB OLIC PANEL corrected calcium 9.3 mg/dL Not Available [facility] (Lab) [address], [place], [address], 11/30/2022 17:42:50 12/01/19 23 11/30/2022 COMPR EHENS MERCED METAB OLIC PANEL albumin 4.6 g/dL 3.5-5. 0 Not Available [facility] (Lab) [address], [place], [address], 11/30/2022 17:42:50 12/01/19 23 11/30/2022 COMPR EHENS MERCED METAB OLIC PANEL total protein 7.7 g/dL 6.0-8. 0 Not Available [facility] (Lab) [address], [place], [address], 11/30/2022 17:42:50 12/01/19 23 11/30/2022 COMPR EHENS MERCED METAB OLIC PANEL Ag ratio 1.5 Na 0.8-2. 1 Not Available [facility] (Lab) [address], [place], [address], 11/30/2022 17:42:50 12/01/19 23 11/30/2022 COMPR EHENS MERCED METAB OLIC PANEL total bilirubin 0.4 mg/dL 0.4-1. 4 Not Available [facility] (Lab) [address], [place], [address], 11/30/2022 17:42:50 12/01/19 23 11/30/2022 COMPR EHENS MERCED METAB OLIC PANEL AST 20 IU/L 16-40 Not Available [facility] ([facility]) [address], [place], [address], 11/30/2022 17:42:50 12/01/19 23 11/30/2022 COMPR EHENS MERCED METAB OLIC PANEL ALT 17 IU/L 8-43 Not Available [facility] ([facility]) [address], [place], [address], 11/30/2022 17:42:50 12/01/19 23 11/30/2022 COMPR EHENS MERCED METAB OLIC PANEL alk phos 71 IU/L 32-92 Not Available [facility] (Lab) [address], [place], [address], 11/30/2022 17:42:50 12/01/19 23 11/30/2022 COMPR EHENS MERCED METAB OLIC PANEL anion gap 14.2 Na 5.0-15 .0 Not Available [facility] (Lab) [address], [place], [address], 11/30/2022 17:42:50 12/01/19 23 11/30/2022 LIPID PROFI LE cholesterol 255 mg/dL 0-200 high Not Available [facility] (Lab) [address], [place], [address], 11/30/2022 17:42:52 12/01/19 23 11/30/2022 LIPID PROFI LE triglyceride 187 mg/dL 30-190 Not Available [facility] (Lab) [address], [place], [address], 11/30/2022 17:42:52 12/01/19 23 11/30/2022 LIPID PROFI LE HDL 63 mg/dL 34-88 Not Available [facility] (Lab) [address], [place], [address], 11/30/2022 17:42:52 12/01/19 23 11/30/2022 LIPID PROFI LE LDL direct 173 mg/dL 0-130 high Not Available [facility] (Lab) [address], [place], [address], 11/30/2022 17:42:52 12/01/19 23 11/30/2022 IRON MELLY NG CAPAC ITY WITH TOTAL IRON iron 135 ug/dL 25-160 Not Available [facility] (Lab) [address], [place], [address], 11/30/2022 17:42:54 12/01/19 23 11/30/2022 IRON MELLY NG CAPAC ITY WITH TOTAL IRON iron binding capacity 389 ug/dL 224-44 8 Not Available [facility] (Lab) [address], [place], [address], 11/30/2022 17:42:54 12/01/19 23 11/30/2022 IRON MELLY NG CAPAC ITY WITH TOTAL IRON %saturation 35 % 15-50 Not Available [facility] (Lab) [address], [place], [address], 11/30/2022 17:42:54 12/01/19 23 11/30/2022 IRON MELLY NG CAPAC ITY WITH TOTAL IRON transferrin 277.5 mg/dL 192.0- 382.0 Not Available [facility] (Lab) [address], [place], [address], 11/30/2022 17:42:54 12/01/19 23 11/30/2022 VITAM IN D-25 vitamin D-25 39.1 NG/mL 30.0-1 00.0 VITAM IN D STATU S: Defic ient <20 ng/ml Insuf ficie nt 20 to <30 ng/ml Suffi cient 30 to 100 ng/ml Upper safet y limit >100 ng/ml Guide lines from [facility] Guide lines [employer] . 2010 Not Available [facility] (Lab) [address] [address], [place], [address], 11/30/2022 18:02:49 12/01/19 11/30/2022 VITAM IN B12 vitamin B12 345 pg/mL Vivienne l range 180-9 14 PG/ML Indet ermin ate 145-1 80 PG/ML Not Available [facility] (Lab) [address], [place], [address], 11/30/2022 18:02:51 12/01/19 23 11/30/2022 DEA TIN ferritin 49.8 NG/mL 10.0-2 91.0 Not Available [facility] (Lab) [address], [place], [address], 11/30/2022 18:02:51 12/01/19 23 11/30/2022 FOLAT E folate 12.2 NG/mL >5.89 Not Available [facility] ([facility] [address], [place], [address], 11/30/2022 18:02:52 12/01/19 23 11/30/2022 FREE T4 free T4 0.96 NG/dL 0.60-1 .64 Bioti n scout ntrat ions >10ng /mL can lead to signi fican t (>10% ) posit merced bias in Free T4 resul ts. If unexp ected resul ts are obtai donald, and bioti n inter feren ce is suspe cted, TSH assay may provi de a halle r asses sment of thyro id funct ion as it is not susce ptibl e to bioti n inter feren ce. Not Available [facility] (Lab) [address], [place], [address], 11/30/2022 18:02:53 12/01/19 23 11/30/2022 TSH TSH 1.430 uIU/m L 0.340- 5.600 Not Available [facility] (Lab) [address], [place], [address], 11/30/2022 18:02:54 12/01/1912/01/2022 GLYCO SYLAT ED HEMOG LOBIN (A1C) % A1C hemoglobin 5.72 % 4.60-6 .20 Not Available [facility] (Lab) [address], [place], [address], 2022 09:23:40 12/01/19 23 12/05/2022 FREE T3 free T3 3.2 pg/mL 2.3-4. 2 Not Available [facility] (Lab) [address], [place], [address], 12/05/2022 10:25:13 Result Notes None recorded. Problems Name Problem SNOMED Code Status Onset Date Resolution Date Notes Provider Name and Address Organization Details Recorded Time Malignant tumor of thyroid gland 976553785 Active 2021 Amber Zaida CLIENT SERVICES DIRECTOR null, [address] 2 13:25:53 Chronic back pain 456107002 Active 2021 Amber Zaida CLIENT SERVICES DIRECTOR null, [address] 2 13:25:53 Hypothyroidism 58776281 Active 2021 Amber Zaida CLIENT SERVICES DIRECTOR null, [address] 2 13:25:53 Hypertensive disorder 35537537 Active 2021 Amber Zaida CLIENT SERVICES DIRECTOR null, [address] 2 13:25:53 Allergic rhinitis 02117698 Active 2021 Amber Zaida CLIENT SERVICES DIRECTOR null, [address] 2 13:25:53 Hyperlipidemia 53887194 Active 2021 Jamie Hernandez MD [address] [facility] [place], [address], [address] 2 11:35:14 Atrial paroxysmal tachycardia 564614449 Active 2021 Jamie Hernandez MD [address] [place], [address], [address] 2 12:02:45 Iron deficiency anemia 05953819 Active 2021 Jamie Hernandez MD [address] [place] [address] Rd [address], [place], [address] [place] [address] 2 11:54:56 Problem Notes None recorded. Procedures Surgical History Date Name Laterality Status Provider Name and Address Organization Details Recorded Time 12/31/19 21 Date of Last Mammogram completed LUCRETIA AMAYA [address] 02/02/2022 09:35:41 Caesarean Section completed Aruna Billings CMA [address] 11/01/2021 10:02:25 Thyroidectomy completed Aruna Billings [address] 11/01/2021 10:02:38 Imaging Results None recorded. Procedure Notes None recorded. Medical Equipment None Reported. Allergies Allergen ID Allergen Name Allergen Category Reaction Reaction Severity Criticality Documentation Date Start Date Code Code System Note Provider Name and Address Organization Details Recorded Time 520100 Iodinated contrast media (substanc e) medicatio n Not available Not available Not available 11/01/2021 35137 2003 SNOMED Aruna Billings, ADMINISTRATOR OF HOME HEALTH null, [address] 2 09:53:32 Medications Name Sig Start Date Stop Date Status Note LastModified by Organization Details LastModified Time losartan 50 mg tablet Take 1 tablet every day by oral route. 11/28 completed pt state she take 1 and 1/2 daily Not Available Not Available Not Available cyclobenza gwen 10 mg tablet TAKE 1 TABLET BY MOUTH EVERY 12 HOURS FOR 30 DAYS active Not Available Not Available No t Available cetirizine 10 mg tablet TAKE 1 TABLET BY MOUTH EVERY DAY active Not Available Not Available No t Available atorvastat in 10 mg tablet Take 1 tablet every day by oral route at bedtime for 90 days. active Not Available Not Available No t Available fluconazol e 150 mg tablet TAKE ONE TABLET BY MOUTH NOW AND ONE TABLET IN 7 DAYS IF SYMPTOMS HAVE NOT IMPROVED. 06/21 completed Not Available Not Available Not Available valacyclov ir 1 gram tablet TAKE 1 TABLET BY MOUTH THREE TIMES A DAY FOR 10 DAYS 08/03 completed Not Available Not Available Not Available meloxicam 15 mg tablet TAKE 1 TABLET BY MOUTH EVERY DAY DIRECTED 11/30 completed Not Available Not Available Not Available phenazopyr idine 200 mg tablet TAKE 1 TABLET BY MOUTH THREE TIMES A DAY NEEDED FOR PAIN 06/21 completed Not Available Not Available Not Available ondansetro n HCl 4 mg tablet TAKE 1 TABLET BY MOUTH EVERY 8 HOURS NEEDED FOR NAUSEA AND VOMITING FOR UP TO 5 DAYS 11/30 completed Not Available Not Available Not Available Synthroid 125 mcg tablet TAKE 1 TABLET BY MOUTH EVERY DAY active Not Available Not Available No t Available clobetasol 0.05 % topical cream active Not Available Not Available Not Available metronidaz ole 500 mg tablet TAKE 1 TABLET BY MOUTH TWICE A DAY UNTIL FINISHED 06/21 completed Not Available Not Available Not Available sulfametho xazole 800 mg-trimeth oprim 160 mg tablet TAKE 1 TABLET EVERY 12 HOURS BY MOUTH DIRECTED FOR 14 DAYS. 08/03 completed Not Available Not Available Not Available Kenalog 40 mg/mL suspension for injection 1 mL 12/28 completed Not Available Not Available Not Available oxycodone- acetaminop hen 5 mg-325 mg tablet TAKE 1 TABLET BY MOUTH THREE TIMES DAILY NEEDED active Not Available Not Available No t Available famotidine 20 mg tablet active Not Available Not Available Not Available tamsulosin 0.4 mg capsule TAKE 1 CAPSULE BY MOUTH EVERY DAY DIRECTED active Not Available Not Available No t Available phenazopyr idine 100 mg tablet 08/03 completed Not Available Not Available Not Available baclofen 10 mg tablet TAKE 1 TABLET 4 TIMES A DAY BY ORAL ROUTE DIRECTED FOR 14 DAYS. active Not Available Not Available No t Available pantoprazo le 40 mg tablet,del ayed release TAKE 1 TABLET BY MOUTH EVERY DAY FOR 14 DAYS 12/28 completed Not Available Not Available Not Available misoprosto l 200 mcg tablet Take 1 tablet twice a day by oral route. 11/01 completed Not Available Not Available Not Available cephalexin 500 mg tablet 08/03 completed Not Available Not Available Not Available hydrochlor othiazide 25 mg tablet TAKE 1 TABLET BY MOUTH EVERY DAY active Not Available Not Available No t Available diclofenac sodium 50 mg tablet,del ayed release Take 1 tablet twice a day by oral route as directed for 30 days. 12/08 completed Not Available Not Available Not Available Synthroid 112 mcg tablet Take 1 tablet every day by oral route. 12/28 completed Not Available Not Available Not Available metoprolol succinate ER 25 mg tablet,ext ended release 24 hr TAKE 1 TABLET BY MOUTH EVERY DAY active Not Available Not Available No t Available methylpred nisolone 4 mg tablets in a dose pack TAKE 6 TABLETS ON DAY 1 DIRECTED ON PACKAGE AND DECREASE BY 1 TAB EACH DAY FOR A TOTAL OF 6 DAYS active Not Available Not Available No t Available losartan 100 mg tablet Take 1 tablet every day by oral route as directed for 90 days. active Not Available Not Available No t Available fluticason e propionate 50 mcg/actuat ion nasal spray,susp ension INSTILL SPRAY IN NOSTRIL(S ) ONCE DAILY 2022 active Not Available Not Available Not Avai lable ferrous fumarate 324 mg (106 mg iron) tablet TAKE 1 TABLET BY MOUTH 2022 active Not Available Not Available Not Avai lable nitrofuran toin monohydrat e/macrocry stals 100 mg capsule 08/03 completed Not Available Not Available Not Available Vitamin C 06/21 completed Not Available Not Available Not Available oxycodone 5/325 one every 8 hours as needed 11/01 completed Not Available Not Available Not Available Vitamin D3 06/21 completed Not Available Not Available Not Available ferrous fumarate 325 mg (106 mg iron) tablet Take by oral route. 08/24 completed Not Available Not Available Not Available cetirizine 10 mg capsule Take 1 capsule every day by oral route. 08/24 completed Not Available Not Available Not Available Calci-Max 600 mg-1 mg-500 unit-30 unit capsule Take by oral route. 06/21 completed Not Available Not Available Not Available Vitals Date Recorded Body height Body mass index (BMI) Body weight Heart rate Oxygen saturation Oxygen saturation in Arterial blood by Pulse oximetry Systolic And Diastolic Provider Name and Address Organization Details Last Updated DateTime 3 152.4 cm 33.2 kg/m2 57826.7 g 61 /min 96 % 96 % 128/88 mm[Hg] Ann Blanca CMA [place] [facility] [place] 3 15:08:51 Date Recorded Body height Body mass index (BMI) Body weight Respiratory rate Oxygen saturation Oxygen saturation in Arterial blood by Pulse oximetry Heart rate Systolic And Diastolic Provider Name and Address Organization Details Last Updated DateTime 3 152.4 cm 31.8 kg/m2 24847.5 6 g 16 /min 100 % 100 % 94 /min 120/80 mm[Hg] Aruna Billings [address] 3 10:18:00 Date Recorded Body height Body mass index (BMI) Body weight Respiratory rate Heart rate Oxygen saturation Oxygen saturation in Arterial blood by Pulse oximetry Systolic And Diastolic Provider Name and Address Organization Details Last Updated DateTime 3 152.4 cm 31.8 kg/m2 48436.5 6 g 16 /min 111 /min 98 % 98 % 130/90 mm[Hg] Aruna Billings [address] 3 10:19:17 Date Recorded Body height Body mass index (BMI) Body weight Heart rate Oxygen saturation Oxygen saturation in Arterial blood by Pulse oximetry Respiratory rate Systolic And Diastolic Provider Name and Address Organization Details Last Updated DateTime 2 152.4 cm 33 kg/m2 38455.1 1 g 84 /min 98 % 98 % 16 /min 130/74 mm[Hg] Aruna Billings [address] 2 11:36:57 Social History Question Answer Notes LastModified by Organizat ion Details LastModified Time Tobacco Smoking Status Current Every Day Smoker Aruna Billings CMA [address] 11/01/2021 10:01:21 Do You Have An Advance Directive? No [email or web address] Information not available 07/30/2022 Do You Wear A Helmet When Biking? No [email or web address] Information not available 07/30/2022 Are You Blind Or Do You Have Difficulty Seeing? No [email or web address] Information not available 07/30/2022 What Is Your Level Of Caffeine Consumption? Occasional Information not available 11/01/2021 Are You Deaf Or Do You Have Serious Difficulty Hearing? No Information not available 07/30/2022 What Type Of Diet Are You Following? REGULAR [email or web address] Information not available 07/30/2022 How Many Times Per Week Do You Exercise? 3-4 Times Per Week [email or web address] Information not available 07/30/2022 Are There Any Guns Present In Your Home? No [email or web address] Information not available 07/30/2022 Do You Have A Medical Power Of Rehabilitation Tech? No [email or web address] Information not available 07/30/2022 What Was The Date Of Your Most Recent Tobacco Screening? 08/24/2022 [email or web address] Information not available 08/24/2022 Do You Have Any Pets? No [email or web address] Information not available 07/30/2022 What Is Your Relationship Status? Information not available 11/01/2021 Do You Use Your Seat Belt Or Car Seat Routinely? Yes [email or web address] Information not available 07/30/2022 Are You Sexually Active? Yes [email or web address] Information not available 07/30/2022 Do You Have Smoke And Carbon Monoxide Detectors In Your Home? Yes [email or web address] Information not available 07/30/2022 Are You Passively Exposed To Smoke? Yes [email or web address] Information no t available 07/30/2022 How Much Tobacco Do You Smoke? 0.5 PPD [email or web address] Information not available 12/08/2021 Do You Use Sunscreen Routinely? No Information not available 07/30/2022 Has Tobacco Cessation Counseling Been Provided? Yes [email or web address] Information not available 07/30/2022 How Many Years Have You Smoked Tobacco? 10 Information not available 11/01/2021 Have You Recently Traveled Abroad? No Information not available 07/30/2022 Do You Have Difficulty Walking Or Climbing Stairs? No Information not available 07/30/2022 Sex: Unknown Functional Status Question Answer Note LastModified by Organizat ion Details LastModified Time Do you use any illicit or recreational drugs? No Information not available 07/30/2022 Do you or have you ever used any other forms of tobacco or nicotine? No [email or web address] Information not available 07/30/2022 What is your level of alcohol consumption? None Information not available 11/01/2021 Are you currently employed? Yes [email or web address] Information not available 07/30/2022 Do you have difficulty doing errands alone? No [email or web address] Information not available 07/30/2022 Are you able to care for yourself? 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 No [email or web address] Information not available 07/30/2022 What is your exercise level? Occasional Information not available 07/30/2022 Mental Status Question Answer Note LastModified by Organization D etails LastModified Time Do you have difficulty concentrating, remembering or making decisions? No [email or web address] Information no t available 07/30/2022 Family History Relationship Description Onset Age of this Age Resolved Age Notes LastModified by Organization Details LastModified Time Mother Myocardial infarction Not available 11/01 10:00:53 Medical History Condition Response Coronary Artery Disease N Anxiety/Depression N Other N Gout N Hyperthyroidism N Colonoscopy N Vit D Def N ADD or ADHD N Thyroid Problems N Hypothyroidism N COPD N GI Problems N Edema N Anemia N Heart Attack (MD) N Diabetes N Vit B12 def N Vision or Eye Problems N Arthritis N Seizures/Epilepsy N Headaches or Migraines N Congestive Heart Failure (CHF) N Hyperlipidemia N Cancer Y Chronic Pain N Stroke N Diverticulitis N Asthma N ED N Sleep Disorder N Aortic Aneurysm N GERD/Reflux N High Cholesterol N Hepatitis N Patient Denies Significant Past Medical History N Pulmonary Embolism N Hypertension N Infectious Disease (HIV, AIDS, Hep-C) N Gynecological History Statement/Question Response Last Pap Smear 2021 Hormone Replacement Therapy N Date of Last Mammogram 12/30/2020 Number of Children 3 Age at Menarche 12 Age at First Child 21 Number of Live Children 3 Obstetrics History GPAL:G 3 P 0 0 0 3 Type Value Living 3 Total 3 Past Encounters Encounter ID Performer Location Encounter Start Date Encounter Closed Date Diagnosis/Indication Diagnosis SNOMED-CT Code Diagnosis ICD10 Code Diagnosis Note [id number] Jamie Hernandez MD [facility] [address] [facility] [address] 11/01/2021 09:39:04 11/01/2021 10:48:37 Low back pain 918776383 M54.50 Stable. Discussed dx, px, treatment options. Will continue regimen today, labs today. RTC in 2 weeks for f/u Hypertensive disorder 38 617667 I10 Stable. Discussed dx, px, treatment options. Will continue regimen today, labs today. RTC in 2 weeks for f/u Chronic back pain 670009 002 G89.29 Stable. Discussed dx, px, treatment options. Will continue regimen today, labs today. Referral as well. RTC in 2 weeks for f/u Hypothyroidism 77858650 E03.9 Stable. Discussed dx, px, treatment options. Will continue regimen today, labs today. RTC in 2 weeks for f/u Allergic rhinitis 445606 04 J30.9 Stable. Discussed dx, px, treatment options. Will continue regimen today, labs today. RTC in 2 weeks for f/u [id number] Jamie Hernandez MD [facility] [address] [place] [address] 11/28/2021 11:00:21 11/28/2021 11:43:50 Hypertensive disorder 46594108 I10 Uncontroll ed. Discussed dx, px, treatment options. Will increase dose today of losartan. Will get evaluation for hypertensi on. RTC after evaluation . Secondary hypertension 48569760 I15.9 Uncontroll ed. Discussed dx, px, treatment options. Will increase dose today of losartan. Will get evaluation for hypertensi on. RTC after evaluation . Palpitations 91389949 R0 0.2 Uncontroll ed. Cardiology referral today. Will f/u w/ results. [id number] ANN GREEN NP [facility] [address] [place] [address] 12/07/2021 11:12:56 12/07/2021 15:26:49 [id number] Harsh Matson MD [facility] [address] [place] [address] 12/08/2021 15:00:32 12/08/2021 16:10:37 Palpitations 62935556 R00.2 significan tly worse when blood pressure is elevated. Could also be related to hypothyroi dism. Could also be related to structural heart disease. After echocardio gram and event monitor and more aggressive treatment of blood pressure and thyroid all make further recommenda tions. Paroxysmal supraventricular tachycardia 20145071 I47.1 One-week event monitor and echocardio gram. Therapeuti c recommenda tions based on the results of these 2 studies Hypothyroidism 70664732 E03.9 increase Synthroid from 112 mcg a day to 125 mcg today and have the labs repeated [facility] 6 weeks. Essential hypertension 37364589 I10 Add HCTZ 25 mg a day to losartan. She will continue low-sodium diet and continue to monitor daily heart rate blood pressure diary. [id number] Harsh Matson MD [facility] [address] [place] [address] 12/28/2021 14:39:50 12/28/2021 15:37:50 Atrial paroxysmal tachycardia 719051881 I47.1 Begin metoprolol er 25 mg daily. Essential hypertension 29196726 I10 Continue medication s, exercise and low Na diet. [id number] Jamie Hernandez MD [facility] [address] [place] [address] 02/02/2022 09:26:40 02/02/2022 09:40:07 [id number] Jamie Hernandez MD [facility] [address] [place] [address] 02/09/2022 11:40:58 02/09/2022 12:08:05 Atrial paroxysmal tachycardia 990406061 I47.1 Stable. Will continue to f/u w/ cardiology . Allergic rhinitis 796317 04 J30.9 Stable. Discussed dx, px, treatment options. Will continue regimen today, labs today. RTC in 2 weeks for f/u Chronic back pain 689910 002 G89.29 Stable. Discussed dx, px, treatment options. Will continue regimen today, labs today. Referral as well. RTC in 2 weeks for f/u Hyperlipidemia 29536995 E78.5 Hypertensive disorder 38 180390 I10 Hypothyroidism 91112721 E03.9 Stable. Discussed dx, px, treatment options. Will continue regimen today, labs today. RTC in 2 weeks for f/u Osteoarthritis 855896154 M19.90 Uncontroll ed. Will start mobic today. RTC in 3 months for f/u [id number] Jamie Hernandez MD [facility], [address] [place] [address] 06/21/2022 08:47:53 06/21/2022 09:48:03 Abscess of skin and/or subcutaneous tissue 20225562 L02.91 New problem. Discussed dx, px, treatment options. Will start bactrim today. RTC as needed Malignant tumor of thyroid gland 601426658 C73 Stable. Labs today, referral to endo. RTC as needed Hyperlipidemia 13495891 E78.5 Stable. Labs today [id number] aJmie Hernandez MD [facility], [address] [place] [address] 08/03/2022 11:19:42 08/03/2022 12:06:57 Essential hypertension 05221827 I10 Stable. BP at goal. Continue regimen. RTC in 6 months for f/u Low back pain 918649066 M54.50 Stable. Discussed dx, px, treatment options. Will continue regimen. RTC in 6 months for f/u Hypothyroidism 96821312 E03.9 Stable. TFTs at goal. Discussed dx, px, treatment options. Will continue regimen. RTC in 6 months for f/u Iron defic iency anemia 87288788 D50.9 Stable. Iron at goal. Discussed dx, px, treatment options. Will continue regimen. RTC in 6 months for f/u Incomplete emptying of urinary bladder 107937278 R39.14 Worsening. Discussed dx, px, treatment options. Will start flomax today. RTC in 6 months for f/u [id number] Harsh Matson MD [facility] [address] [place] [address] 08/24/2022 14:43:43 08/24/2022 16:08:27 Atrial paroxysmal tachycardia 955636681 I47.1 Cont ex and diet. If svt resumes, then start bb. No absolute need to take metoprolol . Essential hypertension 33939648 I10 Continue medication s, exercise and low Na diet. [id number] Jamie Hernandez MD [facility], [address] [place] [address] 10/12/2022 11:48:21 10/12/2022 12:17:29 [id number] Jamie Hernandez MD [facility] [address] [facility] [place] [address] 11/30/2022 10:06:40 11/30/2022 13:11:03 Iron deficiency anemia 70345294 D50.9 Stable. Iron at goal. Discussed dx, px, treatment options. Will continue regimen. RTC in 6 months for f/u Contact dermatitis 56230 004 L25.9 Uncontroll ed. IM Kenalog today, RTC as needed. Fatigue 32232960 R53.83 New problem. Discussed dx, px, treatment options. Will get labs today for evaluation . Will f/u w/ results. [id number] Jamie Hernandez MD [facility] [address] [place] [address] 12/28/2022 10:11:07 12/28/2022 12:35:15 Spasm of back muscles 130178198 M62.830 Uncontroll ed. Discussed dx, px, treatment options. Will d/c flexeril today, will start baclofen, medrol dose julian today. Discussed r/b/se of medication , pt understand ing. RTC as needed. Handout given today Health Concerns Section Related Observation LastModified by Organization Detai ls LastModified Time None Recorded Concern Status LastModified by Organization Details LastModified Time None Recorded Advance Directives Directive N: Payers Insurance Date Sequence Insurance Name Policy Number Policy Drake Covered Member ID Drake Member ID Guarantor Name 02/22/2023 1 [facility] [id number] Willam Iqbal [id number] Willam Iqbal 11/01/2021 1 *SELF PAY* Dionte Iqbal Notes Date Note Type Note Provider Name and Address Organization Details Recorded Time 08/03/20 22 text/htm l Back PainReported bypatient.Location:pain is not radiating Severity:improving Associated Symptoms:no fever; no weak limbs; no numbness of the legs/feet; no tingling; no incontinence; no shortness of breathNotes:[place], referral todayCare Management - HypertensionReported bypatient.Self Care:not under emotional stress Severity:symptoms are improving; does not interfere with daily activities Associated Symptoms:no dizziness; no lightheadedness; no chest pain; no shortness of breath; no palpitations; no edema; no calf muscle cramps; no blurred vision; no confusion; no headaches; no fatigueNotes:On losartan daily but continues to have elevated BP. Pt w/ recent evaluation in ED for evaluation On losartan dailyHypothyroidismReported bypatient.Onset/Timing:better Context/Risk:normal thyroid levels; no history of head or neck radiation during childhood; no history of thyroid disease; no history of hypothyroidism; no history of hyperthyroidism; no excess iron exposure Exercisegets exercise Associated Symptoms:no cold intolerance; no heat intolerance; no weight loss; no weight gain; no double vision; no dry eyes; no hoarseness; no difficulty swallowing; no neck masses; no deepening of the voice; no fast heart rate; no increased blood pressure; no palpitations; no chest pain; no chest tightess or pressure; no constipation; no diarrhea; no vomiting; no decreased appetite; no loose stools; no irregular menstrual periods; no excessive sweating; no joint pain; no numbness; no tingling of the hands or feet; no dry skin; no tremor; no nervousness; no anxiety; no depression; no fatigue; no sleep difficulties; no skin changes; no hair changesNotes:On synthroid 112 mcg dailySinusitis/AllergyReported bypatient.Onset/Timing:resolved Location:no headache; no facial pain; no sinus pain; no sore throat; no thick phlegm in throat; no constantly clearing the throat; no nasal discharge; no nasal passage blockage; no ear fullness; no nasal itching; no eye itching; no pain behind the eyes; no skin itching Quality:no pain; no itching; no hoarseness; no throbbing; minimal discomfort; improving Duration:resolved Severity:no pain; does not limit daily activities; no frequent breathing through the mouth; no nosebleeds (epistaxis); no snoring Context:no recent upper respiratory infection; no recent sick contacts; not worse with seasonal allergen exposure; not worse around animals; not worse around pollen; not worse around dust; not worse around molds; not worse with environmental exposure; not worse when mowing grass; not worse with certain foods; not worse with odors Risk Factors:no current smoking or tobacco use; no history of smoking; no increased stress; no family history of allergies; no history of nasal trauma; no allergy to aspirin; no history of nasal polyps Aggravating factors:not worse with change in medication; not worse during an upper respiratory infection (a cold); not worse when allergies are active Associated Symptoms:no nasal discharge; no fever; no weight loss; no hemoptysis; no hematemesis; no difficulty breathing; no feeling of strangulation; no nausea or vomiting Reviewed records, labs, medications today. Pt seeing pain management for chronic pain syndrome Jamie Hernandez MD [address] [facility] [address], [place], [address], [address] 08/06/2022 15:59:17 08/24/19 23 text/htm l PAT - picked up metop but never started. Sx improved after bp improved and thyroid became euthyroid. Discussed need for metop. Feels good with occ palps. So, since no further svt, no need to start bb. If sx worsen then can start bb. Discussed nl results of heart tests.Hypertension - excellent control. No SALDIVAR, edema or palpitations. All recent labs are normal. Continue exercise and low Na diet. Continue to monitor BP regularly. Harsh Matson MD [address] [place] [address] Rd [address], [place], [address], [address] 09/01/2022 12:28:45 12/01/19 23 text/htm l AnemiaReported bypatient.Quality:symptoms worse during the day Severity:Microcytic (MCV<80) Duration:constant Timing:worse Associated Symptoms:no shortness of breath; no chest pain; no abdominal pain; no nausea; no vomiting; no melena; no blood in stool; no palpitations; no excessive sweating; normal nails; tolerant of cold; no nonfood cravings; no behavior problems; no symptoms of peripheral neuropathy; normal balance; no jaundice; no pallor; no weight loss;weakness;fatigueFatigueRep orted bypatient.Quality:continuous Severity:normal exercise habits; normal activity;change in sleep patterns;worsening Duration:constant Timing:worse Context:symptoms do not improve on weekends/vacations;problems/str ess at work or home;taking new medications Modifying Factors:no new stressors in life; taking vitamins Associated Symptoms:no drug/alcohol withdrawal; no depression; no anxiety; no sleep disturbances; no snoring; periods of not breathing (apnea) have not been observed; no recent change in weight Reviewed records, labs, medications today. Pt w/ rash on arms, came in contact with something at home, unsure of source, using some OTC medication w/ no improvement. Jamie Hernandez MD [address] [facility] [address], [place], [address], [facility] [place] 12/03/2022 13:00:50 12/29/19 23 text/htm l Back PainReported bypatient.Location:pain is not radiating; mid lower back Quality:sharp;tingling Severity:worsening;severe (8-10);interference with sleep Duration:acute Onset/Timing:recurrent episode Context:unusual activity; prior back problems; used medications for back pain; had evaluations by back specialist Alleviating Factors:rest; relieved by changing position Aggravating Factors:movement/positioning;tw isting;flexing back;extending back Associated Symptoms:no fever; no weak limbs; no numbness of the legs/feet; no tingling; no incontinence; no shortness of breathNotes:Pt taking flexeril for chronic muscle spasms but not helping. Reviewed records, labs, medications today Jamie Hernandez MD [address] [facility] [address], [place], [address], [facility] [place] 12/31/2022 12:40:43 OBGyn Episode No OBEpisode recorded.
--- OUTSIDE RECORDS SUMMARY | 2025-03-08 12:21 | XMS_ITS ---
Author Name [facility] Organization Unknown History of Medication Use Medication Directions Dispensed Refills Start Date End Date Stat us oxyCODONE-acetamino phen (PERCOCET) 5-325 mg per tablet Take 1 tablet by mouth. 05/26/2024 06/24/2024 active aluminum-magnesium hydroxide-simethico ne (MAALOX) 200-200-20 mg/5 mL suspension Take 15 mL by mouth. 05/25/2024 active metoprolol succinate (TOPROL-XL) 25 mg 24 hr tablet Take 0.5 tablets (12.5 mg total) by mouth. 12/17/2023 active Allergies Allergen Reaction Severity Comment Documented Date Source Statu s GADOBUTROL NAUSEA ONLY Patient experie nced a quick wave of nausea after injection of gadavist//TR 09/06/2017 [facility] active LISINOPRIL cough 04/17/2017 [facility] active BENZOIN RASH Burning 09/07/2015 [facility] active Problems Problem Status Onset Date Problem Type Date of Resolution Source Major depression active 2015-09-07 ProblemAct [facility] Microcytic anemia active 2018-05-05 ProblemAct [facility] Seasonal allergies active 2020-02-02 ProblemAct [facility] Bacterial vaginosis active 2021-04-11 ProblemAct [facility] Carpal tunnel syndrome active 2017-05-08 ProblemAct [facility] GERD (gastroesophageal reflux disease) active 2017-03-04 ProblemAct [facility] Lumbar disc herniation with radiculopathy active 2017-09-06 ProblemAct [facility] Balance problem active 2023-12-[address] [facility] Pelvic pain active 2021-04-11 ProblemAct [facility] LEOBARDO (obstructive sleep apnea) active 2015-09-07 ProblemAct [facility] Osteoarthritis of lumbar spine active 2023-03-01 ProblemAct [facility] Chronic right-sided low back pain with right-sided sciatica active 2019-12-05 ProblemAct [facility] IBS (irritable bowel syndrome) active 2015-09-09 ProblemAct [facility] ADD (attention deficit disorder) active 2015-09-07 ProblemAct [facility] Chronic headache disorder active 2017-06-10 ProblemAct [facility] Epigastric pain active 2024-06-[address] [facility] Mixed hyperlipidemia active 2023-03-01 ProblemAct [facility] Recurrent urticaria active 2020-06-30 ProblemAct [facility] Hypertension active 2015-09-07 ProblemAct [facility] Urinary tract infection without hematuria, site unspecified active EncounterDiagnosisAct [facility] 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 ProblemAct [facility] Syncope and collapse active 2023-06-03 ProblemAct [facility] Obesity active 2020-12-07 ProblemAct [facility] Hypothyroidism active 2015-09-07 ProblemAct [facility] Seasonal allergic conjunctivitis active 2020-06-30 ProblemAct [facility] Diverticulosis active 2008-02-09 ProblemAct [facility] Angio-edema active 2020-06-30 ProblemAct [facility] Palpitation active 2023-05-29 ProblemAct [facility] Seasonal allergic rhinitis due to pollen active 2020-06-30 ProblemAct [facility] Immunizations Vaccine Date Source Lot Number Status Td Tetanus diptheria (Tdvax) 7yo and older 02/27/2020 [facility] [id number] completed Influenza trivalent, 0.5mL, preservative free (Fluarix; FluLaval; Fluzone) ages 6mo and older (Afluria) 3 years and older 07/18/2015 [facility] completed Influenza trivalent, 0.5mL, preservative free (Fluarix; FluLaval; Fluzone) ages 6mo and older (Afluria) 3 years and older 08/25/2014 [facility] completed Influenza trivalent, 0.5mL, preservative free (Fluarix; FluLaval; Fluzone) ages 6mo and older (Afluria) 3 years and older 05/20/2013 [facility] completed Influenza trivalent, 0.5mL, preservative free (Fluarix; FluLaval; Fluzone) ages 6mo and older (Afluria) 3 years and older 08/15/2012 [facility] completed Tdap Tetanus diptheria acell ular pertussis (Boostrix; Adacel) 7yo and older 10/17/2011 [facility] completed Influenza trivalent, 0.5mL, preservative free (Fluarix; FluLaval; Fluzone) ages 6mo and older (Afluria) 3 years and older 05/08/2011 [facility] completed Pneumococcal polysaccharide 23 valent (Pneumovax 23) 2yo and older 10/30/2010 [facility] com pleted Td Tetanus diptheria (Tdvax) 7yo and older 07/27/2009 [facility] completed PPD Test 12/09/2007 [facility] [address] completed Hepatitis B (Gciqnha-P-Tkvzq , Recombivax HB-Adult) 19yo and older 02/22/2006 [facility] [id number] complet ed PPD Test 02/22/2006 [facility] [address] completed
--- OUTSIDE RECORDS SUMMARY | 2025-03-08 12:21 | XMS_ITS | Encounter Summary ---
Author Organization [facility] Address [address] [place] [address] Care Team Providers Care [employer] Presser Name Role Phone Larry Garcia MD Primary Care Provider Reason for Visit * Reason Onset Date Comments prior auth for medication 03/04/2025 Encounter Details Date Type Department Care Team (Late st Contact Info) Description 03/04/2025 Telephone Adult Medicine [facility] [address] [place] [address] Larry Garcia MD [address] [place] [address] prior auth for medication Social History Tobacco Use Types Packs/Day Years Used Date Smoking Tobacco: Former Cigarettes 0.1 32.6 0 1987 - 07/04/2020 Smokeless Tobacco: Never Alcohol Use Standard Drinks/Week Comments Not Currently 0 (1 standard drink = 0.6 oz pur e alcohol) Housing Instability Answer Date Recorde d Are you worried that in the next 2 months you may not have stable housing? No 02/23/2025 Food Access & Nutrition Answer Date Rec orded Do you have access to a vari ety of food including fruits and vegetables? Yes 02/23/2025 Access to Healthcare Answer Date Record ed Within the last 3 months, ho w many times did you visit the emergency department for your medical care? 0 02/23/2025 Health Literacy Answer Date Recorded How often do you need to hav e someone help you when you read instructions, pamphlets, or other written material from your doctor or pharmacy? Never 02/23/2025 Caregiver: How often do you need to have someone help you when you read instructions, pamphlets, or other written material from your doctor or pharmacy? Not on file 02/23/2025 Financial Risk Answer Date Recorded How hard is it for you to pa y for the very basics like food, housing, medical care, and air conditioning / heating? Not very hard 02/23/2025 Transportation Answer Date Recorded Has the lack of transportati on kept you from meetings, work, or from getting things needed for daily living? No Has the lack of transportati on kept you from medical appointments or from getting medications? No 02/23/2025 Social Isolation Answer Date Recorded How often do you feel lonely or isolated from th ose around you? Never 02/23/2025 Food Risk Answer Date Recorded Within the past 12 months we worried whether our food would run out before we got money to buy more. Never true 02/23/2025 Within the past 12 months th e food we bought just didn't last and we didn't have money to get more. Never true 02/23/2025 Dependent Care Answer Date Recorded Do you need help finding or paying for care for your loved ones. For example, childcare administrator or elderly care for an older adult? No 02/23/2025 Education Answer Date Recorded Do you think completing more education or training, like finishing a GED, going to college, or learning a trade, would be helpful for you? No 02/23/2025 Employment and Income Answer Date Recor ded During the last four weeks, have you been actively looking for work? No 02/23/2025 Living Situation Answer Date Recorded What is your living situation? 0 02/23/2025 Comments No Sex and Gender Information Value Date Recorded Sex Assigned at Not on file Legal Sex Female 10:47 PM EST Gender Identity Not on file Sexual Orientation Not on file documented as of this encounter Progress Notes * Julia Newman MA - 03/04/2025 3:04 PM EDT Per patient Dr. Larry Garcia MD [facility] obtained the Approval for this medication , Please see encounter from 03/03/2025 * Sydni Jeff - 03/04/2025 2:45 PM EDT Prior Authorization for Medication-do not complete and send this encounter unless you have the fax from the pharmacy. Is this a Cover My Meds request: Yes -- Farrell Code [id number] Name of Medication oxyCODONE-acetaminophen (PERCOCET) 5-325 mg per tablet Dose of Medication What is the RX # from the faxed refill? How does patient take this med? What Pharmacy did the fax come from: [address] Pharmacy fax #: [phone] [facility] Party Information from fax: What Prescription Plan does the patient have? BIN/PCN if applicable: Cardholder ID: Person Code: Relationship Code: Help desk phone: documented in this encounter Plan of Treatment Upcoming Encounters Date Type Department Care Team (Late st Contact Info) Description 03/08/2025 4:30 PM EDT Evaluation [address] [phone] Roberta Domingo, LEEANN 03/31/2025 11:15 AM EDT Office Visit Adult Medicine [address] [phone] Larry Garcia MD [address] [place] [address] 08/11/2025 4:00 PM EST Office Visit Adult [address] [phone] Larry Garcia MD [address] [place] [address] documented as of this encounter Visit Diagnoses Not on filedocumented in this encounter Additional Health Concerns Assessment Noted Time PHQ-9 Depression Total Score: 6 02/24/20 25 11:04 AM EDT documented as of this encounter Care Teams [employer] Relationship Specialty Start Date End Date Larry Garcia MD [address] [place] [address] PCP - General 03/01/23 documented as of this encounter
[2025-03-08 15:23] LABS: D Dimer High Sensitivity < 150 NG/ML
[2025-03-08 15:26] VITALS: BP 153/91; RESP 18; O2SAT 99
[2025-03-08 15:30] LABS: Troponin-I High Sensitivity < 2.7 ng/L (<3.5-17.0)
--- NOTE | 2025-03-08 15:30 | PC.NURSE ---
pt requested to take home meds oxycodone 5mg, usually takes TID for back pain, has not taken yet today. Provider gave ok. Pt notified and is going to take 5mg.
[2025-03-08 15:39] VITALS: BP 153/91; PULSE 85; RESP 18; TEMP -17.7; TEMP 0; O2SAT 99
== END 2025-03-08 15:40 | disposition home or self-care (01) ==
PROVIDERS: Physician Assistant Medical; Emergency Provider Emergency Medicine; PCP Internal Medicine
DX: R07.89 Other chest pain (principal); E86.0 Dehydration; R42 Dizziness and giddiness; G90.A Postural orthostatic tachycardia syndrome [POTS]
CPT/HCPCS: 36415; 71045; 80053; 84484; 85025; 85379; 93005; 96360; 99284; 99285

== ENCOUNTER → 2025-03-08 10:17 | Outpatient (BNV) | payer OTHER, SELFPAY | PROVIDERS: Emergency Provider Emergency Medicine; PCP Internal Medicine; Visit Provider Internal Medicine Cardiovascular Disease | DX: R94.31 Abnormal electrocardiogram [ECG] [EKG] (principal); R06.02 Shortness of breath | CPT/HCPCS: 93010 ==

== ENCOUNTER → 2025-03-08 10:29 | Outpatient (BNV) | payer OTHER, SELFPAY | PROVIDERS: Emergency Provider Emergency Medicine; PCP Internal Medicine; Visit Provider Radiology Diagnostic Radiology | DX: R07.9 Chest pain, unspecified (principal) | CPT/HCPCS: 71045 ==

== ENCOUNTER 2025-03-20 01:54 | Emergency (ER) | payer OTHER, SELFPAY ==
--- NOTE | 2025-03-20 | ECG_ITS ---
Test Reason : CP Blood Pressure : */* mmHG Vent. Rate : 103 BPM Atrial Rate : 103 BPM P-R Int : 172 ms QRS Dur : 76 ms QT Int : 322 ms P-R-T Axes : 39 5 26 degrees QTcB Int : 421 ms Sinus tachycardia Possible Left atrial enlargement Borderline ECG When compared with ECG of 08-Mar-2025 10:18, Nonspecific T wave abnormality, improved in Lateral leads Referred By: Generic ED Physician Electronically Signed By: RADHA SALINAS MD
[2025-03-20 01:58] VITALS: BP 178/100; PULSE 105; RESP 18; TEMP 36.9; O2SAT 98; BMI 40.6
--- NOTE | 2025-03-20 02:08 | PC.NURSE ---
pt from home, a&ox4, respirations even and unlabored. pt reports she had developed onset of palpitations and chest discomfort at 1am, pt reports she has chills but denies fevers. pt reports some intermittent nausea but denies vomiting. ekg obtained in room and given to proivder. pt sinus tachy on tele 100-103 bpm
--- NOTE | 2025-03-20 02:49 | ED_ITS ---
HPI - Arrhythmia/Palpitations General Chief Complaint: Arrhythmia/Palpitations Stated Complaint: CP Time Seen by Provider: 03/20/25 02:24 Source: patient Mode of arrival: ambulatory Limitations: no limitations History of Present Illness ED Provider: Dr. Aleja Tamez HPI narrative: patient comes to the emergency room complaining of palpitations. Patient states that when she woke up this morning, she started having palpitations, rapid heart rate, then it felt like fluttering. Patient became concerned and came to the emergency room. Patient states that she takes hydrochlorothiazide, losartan and metoprolol. Patient believes that she has been diagnosed with POTS before. Patient states that her heart rate usually gets pretty high when she gets dehydrated. Patient denies nausea vomiting or diarrhea. patient states that today /last night, she did not take any of her medications. Or, the Patient states that prior to arrival, she took her dose of metoprolol. Now on arrival, patient does not have any chest pain or palpitations Related Data Allergies Allergy/AdvReac Type Severity Reaction Status Date / Time benzoin (BENZOIN) Allergy Intermediate BURNING Verified 03/20/25 02:00 Strip Ease Adhesive Remover Allergy Unknown Unknown Uncoded 03/20/25 02:00 Review of Systems 2 Review of Systems: Constitutional : No Weight loss, No Fever, No Chills, No Night Sweats, No Fatigue, No Malaise ENT/Mouth : No Hearing loss, No Ear Pain, No Nasal Congestion, No Sinus Pain, No Hoarseness, No sore throat, No Rhinorrhea, No Swallowing Difficulty Eyes: No Eye Pain, No Swelling, No Redness, No Foreign Body, No Discharge, No Vision Changes Cardiovascular : No Chest Pain, No SOB, No Dyspnea on Exertion, No Orthopnea, No Edema, complaining of Palpitations Respiratory : No Cough, No Sputum, No Wheezing, No Smoke Exposure, No Dyspnea Gastrointestinal : No Nausea, No Vomiting, No Diarrhea, No Constipation, No abdominal Pain, No Hematochezia, No Melena Genitourinary : no irregular bleeding, No Dysuria, No Urinary Frequency, No Hematuria, No Urinary Incontinence, No Urgency, No Flank Pain, No Urinary Flow Changes, No Hesitancy Musculoskeletal : No joint pain, No Myalgias, No Joint Swelling Skin : No Skin Lesions, No rash Neuro : No Weakness, No Numbness, No Paresthesias, No Loss of Consciousness, No Dizziness, No Headache Psych : No Anxiety/Panic, No Depression, No SI/HI/AH/VH, No Social Issues, Heme/Lymph: No Bruising, No Bleeding,No Lymphadenopathy Endocrine : No Polyuria, No Polydipsia, No Temperature Intolerance [facility] Past Medical History Medical History (Updated 03/20/25 @ 04:09 by Aleja Tamez MD) POTS (postural orthostatic tachycardia syndrome) Social History Social History Smoked in Last 30 Days: No Use of substances other than those prescribed or required for medical reasons: No Advance Directives: No Advance Directives Information Provided: No Do you have a plan to hurt others: No Plan Patient : No Physical Exam 2 Exam: Exam: Appearance: Alert. Oriented X3. No acute distress. Eyes: Pupils equal, round and reactive to light. ENT: Pharynx normal. Neck: Normal inspection. Neck supple. No lymph nodes noted. No crepitus CVS: Normal heart rate and rhythm. Pulses normal. Normal S1 and S2 Respiratory: No respiratory distress. Breath sounds normal. No Wheezing. No rales Abdomen: Soft and nontender. No rigidity. No distention. Skin: Skin warm and dry. Normal skin color. Normal skin turgor. Extremities: No lower extremity edema. No Lacerations. No Rash Neuro: Oriented X 3. No motor deficit. No sensory deficit. Moving all extremities. No slurred speech. CN 2 through 12 grossly intact Psych: calm, cooperative, normal affect Vital Signs: Vital Signs: Last Vital Signs Temp 98.4 F 03/20/25 01:58 Pulse 105 H 03/20/25 01:58 Resp 18 03/20/25 01:58 BP 184/94 H 03/20/25 02:59 Pulse Ox 98 03/20/25 01:58 O2 Del Method Room Air 03/20/25 01:58 BMI result Body Mass Index 40.6 Course Course Course Narrative: patient reporting palpitations. However, after she took a metoprolol, the palpitations subsided. Patient's labs and EKG pending it was noted that patient's blood pressure is 178/100 here in the emergency room. Patient was given her usual dose of losartan and hydrochlorothiazide. As mentioned above, patient already took metoprolol prior to arrival Medications Administered Discontinued Medications Generic Name Dose Route Start Last Admin Trade Name Freq PRN Reason Stop Dose Admin Hydrochlorothiazide 25 mg 03/20/25 02:43 03/20/25 02:59 Hydrochlorothiazide 25 Mg Tablet PO 03/20/25 02:44 25 mg ONCE ONE Administration Protocol Sodium Chloride 1,000 mls @ 999 mls/hr 03/20/25 02:42 03/20/25 02:59 Ns IVCONT 03/20/25 03:42 999 mls/hr .Q1H1M ONE Administration Losartan Potassium 100 mg 03/20/25 02:43 03/20/25 02:59 Losartan Potassium 50 Mg Tablet PO 03/20/25 02:44 100 mg ONCE ONE Administration Protocol Medical Decision Making Medical Decision Making [facility] Narrative: my interpretation of EKG: Normal sinus rhythm, heart rate 103, no ST segment depression or elevation, no T-wave inversion, QTC 421 patient's blood pressure in the 150s, heart rate in the 80s, patient feeling much better. Patient states that she has had Holter monitors in the past, they only found PVCs. I discussed with the patient the importance of being compliant with her medications, especially metoprolol which helps control her rate. Patient agreeable. Patient ready for discharge. Differential Diagnosis Differential Diagnoses: The differential diagnosis associated with the presentation includes ( medication noncompliance, sinus tachycardia, POTS, anxiety) Admission/Observation Consideration of admission/observation: Escalation of care including admission/observation considered ( given patient's symptoms, vitals and history, observation was considered) Lab Data [facility] Lab Attestation statement: I reviewed the patient's lab results. 03/20/25 02:51 03/20/25 02:51 Labs: Lab Results 03/20/25 Range/Units 02:51 WBC 6.7 (4.8-10.8) X10*3/uL RBC 4.85 (4.20-5.50) X10*6/uL Hgb 13.2 (12.0-16.0) g/dl Hct 38.4 (37.0-47.0) % MCV 79.2 L (80.0-98.0) fL MCH 27.2 (27.0-33.0) pg MCHC 34.4 (31.0-35.0) g/dl RDW 13.2 (11.0-16.0) % Plt Count 316 (160-400) X10*3/uL MPV 9.7 (9.4-12.3) fL Immature Gran % (Auto) 0.3 (0.0-0.4) % Neut % (Auto) 50.9 (45-73) % Lymph % (Auto) 38.3 (20-40) % [place]y % (Auto) 8.5 (2-11) % Eos % (Auto) 1.3 (0-4) % Baso % (Auto) 0.7 (0-2) % Lymph # (Auto) 2.6 (1.2-4.9) X10*3/uL [place] # (Auto) 0.6 (0.1-1.2) X10*3/uL Eos # (Auto) 0.1 (0.0-0.4) X10*3/uL Baso # (Auto) 0.1 (0.0-0.2) X10*3/uL Abs Immat Gran (auto) 0.02 (0.00-0.03) X10*3/uL Absolute Neuts (auto) 3.4 (2.0-8.3) x10*3/uL Absolute Nucleated RBC 0.000 (0.0-0.012) X10*3/uL Nucleated RBC % (auto) 0.0 (0.0-0.2) /100WBC Sodium 141 (135-145) mmol/L Potassium 4.1 (3.3-5.1) mmol/L Chloride 105 (96-108) mmol/L Carbon Dioxide 27 (22-29) mmol/L Anion Gap 13 (12-20) BUN 18 H (9-16) mg/dL Creatinine 0.72 (0.5-1.4) mg/dL Estim Creat Clear Calc 93.0 Estimated GFR > 60 Random Glucose 104 (60-115) mg/dL Calcium 8.8 D (8.4-10.2) mg/dL Magnesium 1.9 (1.6-2.6) mg/dL Total Bilirubin 0.1 (0.0-1.0) mg/dL AST 28 (5-31) U/L ALT 22 (0-31) U/L Alkaline Phosphatase 79 (39-117) U/L Troponin I High Sens < 2.7 (<3.5-17.0) ng/L B-Natriuretic Peptide 19 (<100) pg/mL Total Protein 6.9 (6.5-8.0) g/dL Albumin 4.2 (3.5-5.0) g/dL Lipase 57 (8-78) U/L Independent Interpretation I performed an independent interpretation of an: EKG Critical Care Time Critical Care Time Critical Care Time: Yes Total Critical Care Time: 45 Attestation: I have personally provided critical care time. Time includes review of lab data, radiology results, discussion with consultants, and monitoring for potential decompensation. Intervention performed as documented. Discharge Plan Discharge Clinical Impression: Palpitations Patient Disposition: Home, Self-Care Instructions: Heart Palpitations (DC) Additional Instructions: Please follow-up with your primary care physician tomorrow. If you have any worsening or new symptoms, please return to the emergency room or call 911 Print Language: [place]
[2025-03-20 02:57] LABS: Hematocrit 38.4 % (37.0-47.0); Hemoglobin 13.2 g/dl (12.0-16.0); Imm Gran Abs Auto 0.02 X10*3/uL (0.00-0.03); Imm Gran Pct Auto 0.3 % (0.0-0.4); Lymphocytes Absolute Auto 2.6 X10*3/uL (1.2-4.9); MANUAL DIFF FLAG NO; Mean Corpuscular HGB Conc 34.4 g/dl (31.0-35.0); Mean Corpuscular Hemoglobin 27.2 pg (27.0-33.0); Mean Corpuscular Volume 79.2 fL (80.0-98.0); NRBC Abs Auto 0.000 X10*3/uL (0.0-0.012); NRBC Pct Auto 0.0 /100WBC (0.0-0.2); Platelet Count 316 X10*3/uL (160-400); Red Blood Count 4.85 X10*6/uL (4.20-5.50); White Blood Count 6.7 X10*3/uL (4.8-10.8)
[2025-03-20 02:59] VITALS: BP 184/94
--- NOTE | 2025-03-20 03:01 | PC.NURSE ---
22g placed in left ac, medicated per mar
[2025-03-20 03:02] VITALS: PULSE 89
[2025-03-20 03:16] LABS: Alanine Aminotransferase 22 U/L (0-31); Albumin Level 4.2 g/dL (3.5-5.0); Alkaline Phosphatase 79 U/L (39-117); Anion Gap 13 (12-20); Aspartate Amino Transferase 28 U/L (5-31); Blood Urea Nitrogen 18 mg/dL (9-16); Calcium 8.8 mg/dL (8.4-10.2); Carbon Dioxide 27 mmol/L (22-29); Chloride 105 mmol/L (96-108); Creatinine Clr Calc Pharmacy 93.0; Estimated Glomerular Filt Rate > 60; Lipase 57 U/L (8-78); Magnesium 1.9 mg/dL (1.6-2.6); Potassium 4.1 mmol/L (3.3-5.1); Sodium 141 mmol/L (135-145); Total Protein 6.9 g/dL (6.5-8.0)
[2025-03-20 03:21] LABS: B Type Natriuretic Peptide 19 pg/mL (<100)
[2025-03-20 03:40] LABS: Troponin-I High Sensitivity < 2.7 ng/L (<3.5-17.0)
[2025-03-20 04:05] VITALS: BP 150/92; PULSE 85; RESP 15
[2025-03-20 04:13] VITALS: BP 147/84; PULSE 80; RESP 16; TEMP 36.9; O2SAT 98
[2025-03-20 04:30] VITALS: BP 147/84; PULSE 80; RESP 16; TEMP 36.9; O2SAT 98
== END 2025-03-20 04:30 | disposition home or self-care (01) ==
PROVIDERS: Emergency Provider Emergency Medicine; PCP Internal Medicine
DX: R00.2 Palpitations (principal); I49.9 Cardiac arrhythmia, unspecified; R07.9 Chest pain, unspecified; G90.A Postural orthostatic tachycardia syndrome [POTS]
CPT/HCPCS: 36415; 80053; 83690; 83735; 83880; 84484; 85025; 93005; 96360; 99285; 99291

== ENCOUNTER → 2025-03-20 01:57 | Outpatient (BNV) | payer OTHER, SELFPAY | PROVIDERS: Emergency Provider Emergency Medicine; PCP Internal Medicine; Visit Provider Internal Medicine Cardiovascular Disease | DX: R07.9 Chest pain, unspecified (principal) | CPT/HCPCS: 93010 ==

== ENCOUNTER 2025-04-30 17:55 | Emergency (ER) | payer OTHER, SELFPAY ==
--- NOTE | ~2025-04-30 | XR_ITS ---
CLINICAL HISTORY: Palpitations 1 view chest x-ray Comparison: CR/SR - XR CHEST 1 VIEW - 03/08/25 11:29 EDT Findings: The lungs are clear. Normal size heart. No acute fracture. IMPRESSION: 1. No acute findings. This document has been electronically signed by: Vy Burkett MD on 04/30/2025 20:34:22
--- OUTSIDE RECORDS SUMMARY | 2025-04-30 16:15 | XMS_ITS | Encounter Summary ---
Author Organization [facility] Address [address] [place] [address] Care Team Providers Care Tank Shop Supervisor Name Role Phone Larry Garcia MD Primary Care Provider Reason for Visit * Reason Comments Abdominal Pain 3 days , Nasal Congestion 3 days , Dry nose Sinusitis Palpitations 2 days Encounter Details Date Type Department Care Team (Late st Contact Info) Description 04/30/2025 4:15 PM EDT Office Visit Walk-In Clinic - [facility] [address] [place] [phone] Tre Alaniz, JUNIOR [address] [place] [address] Upper respiratory symptom (Primary Dx); Nausea; Palpitations; Epigastric pain Social History Tobacco Use Types Packs/Day Years [...] care for your loved ones. For example, director child or elderly care for an older adult? [...] on file documented as of this encounter Last Filed Vital Signs Vital Sign Reading Time Taken Comments Blood Pressure 125/81 04/30/2025 4:28 PM EDT Pulse 102 04/30/2025 4:28 PM EDT Temperature 36.2 C (97.2 F) 04/30/2025 4:28 PM EDT Respiratory Rate - - Oxygen Saturation 98% 04/30/2025 4:28 PM EDT Inhaled Oxygen Concentration - - Weight - - Height - - Body Mass Index - - documented in this encounter Progress Notes * Tre Alaniz NP - 04/30/2025 4:15 PM EDT CHIEF COMPLAINT: Abdominal Pain (3 days ,), Nasal Congestion (3 days , Dry nose ), Sinusitis, and Palpitations (2 days ) HPI: Willam Iqbal is a 49 y.o. old female presents to our clinic today with epigastric abdominal pain,congestion, palpitations x 2 days and nausea. Patient states that she started feeling ill after taking Zepbound last Saturday. She is due for her shot at 6 PM today. She denies any fevers or chills shedoes endorse sinus pressure and congestion. She denies any anxiety, tobacco or marijuana or marijuana use states she did take a Zofran 4 mg prior to arrival. ROS: Remainder of the 12 point review of symptoms unremarkable except for those that were identified in the HPI PAST MEDICAL HISTORY: Patient Active Problem List Diagnosis Date Noted History of thyroid cancer 07/29/2024 History of Helicobacter pylori infection 07/29/2024 Constipation 07/21/2024 History of total thyroidectomy with radical neck dissection 07/21/2024 Lipoma 07/21/2024 Balance problem 12/30/2023 Syncope and collapse 06/03/2023 Palpitation 05/29/2023 Mixed hyperlipidemia 03/01/2023 Osteoarthritis of lumbar spine 03/01/2023 Angio-edema 06/30/2020 Recurrent urticaria 06/30/2020 Seasonal allergic rhinitis due to pollen 06/30/2020 Chronic headache disorder 06/10/2017 Carpal tunnel syndrome 05/08/2017 GERD (gastroesophageal reflux disease) 03/04/2017 IBS (irritable bowel syndrome) 09/09/2015 ADD (attention deficit disorder) 09/07/2015 Hypertension 09/07/2015 Hypothyroidism 09/07/2015 Major depression 09/07/2015 LEOBARDO (obstructive sleep apnea) 09/07/2015 Diverticulosis 02/09/2008 Past Surgical History: Procedure Laterality Date APPENDECTOMY 1988 PROCEDURE: HISTORICAL APPENDECTOMY BREAST REDUCTION PROCEDURE: LA BREAST REDUCTION; COMMENT: b/l reduction SECTION PROCEDURE: HISTORICAL DELIVERY; COMMENT: x3 COLONOSCOPY 11/16/2008 PROCEDURE: HISTORICAL COLONOSCOPY; COMMENT: Up to cecum, good preparation, normal colon exam COLONOSCOPY 09/24/2019 PROCEDURE: HISTORICAL COLONOSCOPY; COMMENT: negative THYROIDECTOMY 12/16/2013 PROCEDURE: HISTORICAL TOTAL THYROIDECTOMY; COMMENT: w/ radical neck dissection TUBAL LIGATION PROCEDURE: HISTORICAL TUBAL LIGATION UPPER GASTROINTESTINAL ENDOSCOPY 11/14/2015 PROCEDURE: LA UPPER GI ENDOSCOPY PERFORMED; COMMENT: [facility]; gastric mucosal nodularity; irregular Z line; normal duodenum; biopsies positive for Helicobacter pylori gastritis, negative for Vital esophagus. UPPER GASTROINTESTINAL ENDOSCOPY 09/24/2019 PROCEDURE: UPPER GI ENDOSCOPY/EXAM; COMMENT: biopsy pending SOCIAL HISTORY: Social History Tobacco Use Smoking status: Former Current packs/day: 0.00 Average packs/day: 0.1 packs/day for 32.6 years (3.3 ttl pk-yrs) Types: Cigarettes Start date: 1987 Quit date: 07/04/2020 Years since quittin.8 Smokeless tobacco: Never Substance Use Topics Alcohol use: Not Currently FAMILY HISTORY: Family History Problem Relation Name Age of Onset Heart attack Mother 52.00 Fatal [place] - HTN, LEOBARDO,DM, Thyroid disease, Bipolar Crohn's disease Mother's side Maternal Uncle, Cousin Other (Other: ADD/ADHD) Son Bipolar Hypertension Maternal Grandmother Heart attack Paternal Grandfather Breast cancer Other cousin - maternal 35.00 Chemo/Radiation Colon cancer Other cousin - mother 42.00 Other (Other: Other) Father No contact; heart problem Other (Other: Other) Paternal Grandmother old age- 90's No Known Problems Daughter No Known Problems Son Ovarian cancer Neg Hx Family Status Relation Name Status Mother at age 54 [place] Mother's sheridan Alive Son Alive MGM Alive PGF Other cousin - maternal Alive Other cousin - mother Alive Father Other PGM Daughter Alive Son Alive Neg Hx (Not Specified) No partnership data on file MEDICATIONS DISCONTINUED/REORDERED: There are no discontinued medications. ACTIVE MEDICATIONS: No outpatient medications have been marked as taking for the 04/30/25 encounter (Office Visit) with Tre Alaniz NP. Current Facility-Administered Medications for the 04/30/25 encounter (Office Visit) with Tre Alaniz NP Medication Dose Route Frequency Provider Last Rate Last Admin ondansetron ODT (ZOFRAN-ODT) disintegrating tablet 4 mg 4 mg oral Once Tre Alaniz NP ALLERGIES: Allergies Allergen Reactions Benzoin Itching, Other and Rash Burning Iodinated Contrast Media Unknown Lisinopril Cough and Unknown cough Gadobutrol Nausea And Vomiting and Nausea Only Patient experienced a quick wave of nausea after injection of gadavist//TR PHYSICAL EXAM: Vitals: 04/30/25 1628 BP: 125/81 BP Location: Left arm Patient Position: Sitting Pulse: 102 Temp: 36.2 ??C (97.2 ??F) SpO2: 98% CONSTITUTIONAL: alert, calm, cooperative, in no acute distress HEAD: normocephalic, atraumatic SKIN: warm and dry HEART: S1, S2 normal, regular rate and rhythm, no murmurs, rubs, gallops LUNGS: clear to auscultation bilaterally, no wheezes, rales, rhonchi. Respirations are of regular rate and rhythm without acute distress. GI: Soft nontender, no rebound tenderness, negative Edward, negative obturator, negative psoas sign. General abdominal discomfort to the mid abdomen negative pelvic plain Positive bowel sounds MSK: no clubbing, cyanosis, or edema of the extremities NEUROLOGIC: alert and oriented, no tremor, cranial nerves II-XII grossly intact PSYCH: mood/affect full range, speech clear, good eye contact, cooperative with exam LABS/IMAGING: Orders Placed This Encounter Procedures Poc Rapid [id number], MOLECULAR Order Specific Question: Release to patient Answer: Immediate [1] ECG 12 lead Order Specific Question: Reason for Exam: Answer: Palpitations EKG interpretation-sinus rhythm on the EKG with nonspecific T wave abnormality. Negative for STEMI.Some T wave abnormalities present on the previous EKG IMPRESSION: 1. Upper respiratory symptom 2. Nausea 3. Palpitations PLAN: Escalated to hospital level of care 1. Palpitations-EKG was performed in office, showing some new T wave abnormalities, some were present in the previous EKG. Patient advised to seek further workup in the emergency room. Patient will self present to [facility] for further evaluation via car by her . Advised the patient to call pcp if any problems. Patient understands the plan. Patient is in agreement with the plan. Tre Alaniz NP on 04/30/2025 at 4:46 PM EDT Today's documentation was made using voice recognition software. This note may contain grammatical errors secondary to this software. documented in this encounter Plan of Treatment Upcoming Encounters Date Type Department Care Team (Late st Contact Info) Description 05/11/2025 1:00 PM EDT Office Visit Adult Medicine [facility] [address], [place] [phone] Larry Garcia MD [address] [place], [place] documented as of this encounter Procedures Procedure Name Priority Date/Time Associated Diagnosis Comments ECG 12-LEAD Routine 04/30/2025 5:34 PM EDT Palpitations POC RAPID [id number], MOLECULAR Routine 04/30/2025 4:56 PM EDT Upper respiratory symptom documented in this encounter Results * ECG 12 lead (04/30/2025 5:34 PM EDT) Tre Alaniz SUPERINTENDENT TESTS ECG ORDERABLES Edited Result - Final * Poc Rapid [id number], MOLECULAR (04/30/2025 4:56 PM EDT) COVID-19/SARS- COV-2 Rapid POC Negative Negative Swab Nasopharyngeal structure / Unknown 04/30/2025 4:56 PM EDT Tre Alaniz NP POINT OF CARE TEST ENTER/EDIT ORDERABLES Final Result documented in this encounter Visit Diagnoses Diagnosis Upper respiratory symptom- Primary Nausea Nausea alone Palpitations Epigastric pain Abdominal pain, epigastric documented in this encounter Orders Medications Ordered That Tray ht Not Have Been Administered Count Last Ordered Date First Ordered Date ondansetron ODT (ZOFRAN-ODT) disintegrating tablet 4 mg 1 04/30/2025 documented in this encounter Additional Health Concerns Assessment Noted Time PHQ-9 Depression Total Score: 6 02/24/20 25 11:04 AM EDT documented as of this encounter Care Teams Tank Shop Supervisor Relationship Specialty Start Date End Date Larry Garcia MD [address] [place] [phone] PCP - General 03/01/23 documented as of this encounter
--- NOTE | 2025-04-30 18:05 | ECG_ITS ---
Test Reason : PALPAITATION Blood Pressure : */* mmHG Vent. Rate : 89 BPM Atrial Rate : 89 BPM P-R Int : 150 ms QRS Dur : 80 ms QT Int : 346 ms P-R-T Axes : 58 12 16 degrees QTcB Int : 420 ms Normal sinus rhythm Nonspecific T wave abnormality Abnormal ECG When compared with ECG of 20-Mar-2025 01:57, No significant change was found Referred By: Generic ED Physician Electronically Signed By: RADHA SALINAS MD
[2025-04-30 18:21] VITALS: BP 163/91; PULSE 93; RESP 18; TEMP 37.1; O2SAT 99; BMI 38.8
--- NOTE | 2025-04-30 18:21 | ED.GENADULT ---
[facility] - General Adult General Chief complaint: Arrhythmia/Palpitations Stated complaint: Abnormal EKG, sent from Time Seen by Provider: 04/30/25 20:01 Source: patient Mode of arrival: ambulatory Limitations: no limitations History of Present Illness ED Provider: Dr. Medina [facility] narrative: This is a 49-year-old female history of pots presented hospital today for evaluation of palpitations. Patient was sent by urgent care because she has T-wave prolongation on EKG. Patient states she was unsure exactly what that have meant for her. However she originally presented to urgent care because of sinus congestion. Patient states she has been having intermittent palpitations however she does have history of pots and attributed to that. She does not have any chest pain. No shortness of breath. Patient stated that she does get some tachycardic whenever she changes position. She does complain of some sinus pain on bilateral maxilla. She a does take Tylenol which did alleviate the pain. Related Data Allergies Allergy/AdvReac Type Severity Reaction Status Date / Time benzoin (BENZOIN) Allergy Intermediate BURNING Verified 04/30/25 18:23 Strip Ease Adhesive Remover Allergy Unknown Unknown Uncoded 03/20/25 02:00 Review of Systems Review of Systems: Pertinent review of systems as mentioned in [facility]. All other system otherwise negative. [facility] Past Medical History [facility] Narrative: Medical history as mentioned in [facility] Medical History (Updated 04/30/25 @ 20:47 by Romy Medina DO) POTS (postural orthostatic tachycardia syndrome) Social History Social History Unable to assess alcohol history related to: Unable to respond Smoked in Last 30 Days: No Use of substances other than those prescribed or required for medical reasons: No Advance Directives: No Advance Directives Information Provided: No Patient : No Physical Exam ED Exam Exam: General: Pleasant, no distress, interacting appropriately Head: Normacephalic, atraumatic ENT: oral mucosa moist, neck supple, no tracheal deviation Cardiovascular: regular rate, regular rhythm, no murmurs, rubbing, gallops Respiratory: CTAB, no wheeze, rales, rhonchi Neurological: Awake and alert, no facial droop noted Skin: Warm and dry Psychiatric: Appropriate mood and thoughts Vital Signs: Vital Signs - 24 hr 04/30/25 18:21 04/30/25 20:00 04/30/25 20:50 Temperature 98.7 F 98.6 F 98.6 F Pulse Rate 93 84 84 Respiratory Rate 18 16 16 Blood Pressure 163/91 H 160/87 H 160/87 H Pulse Oximetry 99 100 100 Oxygen Delivery Method Room Air Room Air Room Air BMI result Body Mass Index 38.8 Course Course Course Narrative: Rapid medical examination performed in triage by Izabela Roman PA-C. Patient is a 49 year old assigned female at presenting to the emergency department with palpitations. Detailed physical exam and review of systems are deferred to the primary care provider. EKG and labs ordered. Patient placed back in the waiting room pending room availability and results. Medical Decision Making Medical Decision Making [facility] Narrative: 49-year-old female presented hospital today for evaluation of intermittent palpitations and EKG changes at urgent care. Review patient's EKG no sign of STEMI. I do not appreciate any signs of significant abnormal T-wave changes. Patient's troponin is negative chest x-ray is negative. Patient's lab work did not show any signs of significant abnormality as well. At this time patient does not complain of chest pain. She appears to be well. We will plan to discharge patient home at this time. Encouraged her to follow up with her primary care doctor for further monitoring. I do not think patient is having cardiac ischemia. Differential Diagnosis Differential Diagnoses: The differential diagnosis associated with the presentation includes Cardiac arrhythmia, ACS, CAD, STEMI Lab Data [facility] Lab Attestation statement: I reviewed the patient's lab results. 04/30/25 18:39 04/30/25 18:39 Labs: Lab Results 04/30/25 Range/Units 18:39 WBC 7.8 (4.8-10.8) X10*3/uL RBC 5.39 (4.20-5.50) X10*6/uL Hgb 14.3 (12.0-16.0) g/dl Hct 42.8 (37.0-47.0) % MCV 79.4 L (80.0-98.0) fL MCH 26.5 L (27.0-33.0) pg MCHC 33.4 (31.0-35.0) g/dl RDW 12.9 (11.0-16.0) % Plt Count 376 (160-400) X10*3/uL MPV 9.9 (9.4-12.3) fL Immature Gran % (Auto) 0.4 (0.0-0.4) % Neut % (Auto) 71.0 (45-73) % Lymph % (Auto) 22.1 (20-40) % Schleicher % (Auto) 5.7 (2-11) % Eos % (Auto) 0.3 (0-4) % Baso % (Auto) 0.5 (0-2) % Lymph # (Auto) 1.7 (1.2-4.9) X10*3/uL Schleicher # (Auto) 0.5 (0.1-1.2) X10*3/uL Eos # (Auto) 0.0 (0.0-0.4) X10*3/uL Baso # (Auto) 0.0 (0.0-0.2) X10*3/uL Abs Immat Gran (auto) 0.03 (0.00-0.03) X10*3/uL Absolute Neuts (auto) 5.6 (2.0-8.3) x10*3/uL Absolute Nucleated RBC 0.000 (0.0-0.012) X10*3/uL Nucleated RBC % (auto) 0.0 (0.0-0.2) /100WBC Sodium 142 (135-145) mmol/L Potassium 4.7 (3.3-5.1) mmol/L Chloride 105 (96-108) mmol/L Carbon Dioxide 30 H (22-29) mmol/L Anion Gap 12 (12-20) BUN 12 (9-16) mg/dL Creatinine 0.80 (0.5-1.4) mg/dL Estim Creat Clear Calc 81.6 Estimated GFR > 60 Random Glucose 102 (60-115) mg/dL Calcium 9.7 D (8.4-10.2) mg/dL Magnesium 2.2 (1.6-2.6) mg/dL Total Bilirubin 0.3 (0.0-1.0) mg/dL AST 23 (5-31) U/L ALT 23 (0-31) U/L Alkaline Phosphatase 92 (39-117) U/L Troponin I High Sens < 2.7 (<3.5-17.0) ng/L Total Protein 7.6 (6.5-8.0) g/dL Albumin 4.8 (3.5-5.0) g/dL COVID-19 (MAXIMILIANO) Negative (Negative) COVID-19 Clin Com See Note Influenza Type A (SHELDON) Negative (Negative) Influenza Type B (SHELDON) Negative (Negative) Influenza A & B Note See Note Independent Interpretation I performed an independent interpretation of an: EKG and Plain X-Ray Discharge Plan Discharge Clinical Impression: Palpitations Patient Disposition: Home, Self-Care Instructions: Heart Palpitations (ED) Interventions: ED Discharge Assessment Last Done: 04/30/25 20:50 Discharge Date/Time: 04/30/25 20:51 Print Language: [place]
[2025-04-30 18:44] LABS: MANUAL DIFF FLAG NO
--- OUTSIDE RECORDS SUMMARY | 2025-04-30 19:04 | XMS_ITS | Clinical Summary ---
Author Organization [address] Address [address] [place] [phone] Phone Care Team Providers [facility] Name Role Phone Larry Garcia MD Primary Care Provider Allergies Active Allergy Reactions Criticality Noted Date Comments Benzoin Itching,Other,Rash 09/07/2015 Burning Gadobutrol Nausea And Vomiting,Nausea Only Low 09/06/2017 Patient experienced a quick wave of nausea after injection of gadavist//TR Iodinated Contrast Media Unknown 07/29/2024 Lisinopril Cough,Unknown 04/17/2017 cough Medications cholecalciferol (VITAMIN D-3) 50 mcg (2,000 unit) capsule Take 1 capsule (2,000 Units total) by mouth 1 (one) time each day. Active omeprazole (PriLOSEC) [address] capsule Take 1 capsule (20 mg total) by mouth 2 (two) times a day. Active LORazepam (ATIVAN) 0.5 mg tablet TAKE 1 TABLET BY MOUTH ONCE A DAY NEEDED FOR PANIC ATTACK. UP TO 6 TIMES PER MONTH 5 Active metoprolol succinate (TOPROL-XL) 25 mg 24 hr tablet Take 1 tablet (25 mg total) by mouth 1 (one) time each day. 90 each 1 5 Active losartan (COZAAR) 100 mg tablet Take 1 tablet (100 mg total) by mouth 1 (one) time each day. 90 tablet 1 5 Active hydroCHLOROthia zide (HYDRODIURIL) 25 mg tablet TAKE 1 TABLET BY MOUTH EVERY DAY 90 tablet 1 5 Active estradioL (Estrace) 0.5 mg tablet Take 1 tablet (0.5 mg total) by mouth 1 (one) time each day. 90 each 5 Active progesterone (Prometrium) 100 mg capsule Take 1 capsule (100 mg total) by mouth at bedtime. 90 each 3 5 Active naloxone (NARCAN) 4 mg/0.1 mL nasal sprayIndication s:opioid overdose,opioid -induced respiratory depression Give 4 mg (1 spray) into one nostril if needed for opiate overdose. May repeat every 2-3 minutes if needed, alternating nostrils, until medical assistance becomes available. 3 each 3 5 Active Zepbound 2.5 mg/0.5 mL injectionIndica tions:Class 2 severe obesity due to excess calories with serious comorbidity and body mass index (BMI) of 39.0 to 39.9 in adult ([facility] V24, [facility] V28) Inject 0.5 mL (2.5 mg total) under the skin every 7 (seven) days. 2 mL 5 Active cetirizine (ZyrTEC) 10 mg tablet Take 1 tablet (10 mg total) by mouth 1 (one) time each day if needed for allergies. 90 tablet 1 5 Active oxyCODONE-aceta minophen (PERCOCET) 5-325 mg per tablet Take 1 tablet by mouth every 8 (eight) hours if needed for severe pain. Max Daily Amount: 3 tablets 84 tablet 5 Active levothyroxine (SYNTHROID, LEVOTHROID) 112 mcg tablet Take 1 tablet (112 mcg total) by mouth 1 (one) time each day. 90 each 1 5 Active cetirizine (ZyrTEC) 10 mg tablet Take 1 tablet (10 mg total) by mouth 1 (one) time each day if needed for allergies. 90 tablet 1 5 025 Discontin ued(Reord er) levothyroxine (SYNTHROID, LEVOTHROID) 112 mcg tablet Take 1 tablet (112 mcg total) by mouth 1 (one) time each day. 90 each 1 5 025 Discontin ued(Reord er) oxyCODONE-aceta minophen (PERCOCET) 5-325 mg per tablet Take 1 tablet by mouth every 8 (eight) hours if needed for severe pain. Max Daily Amount: 3 tablets 84 tablet 5 025 Discontin ued(Reord er) phentermine 15 mg capsule Take 1 capsule (15 mg total) by mouth 1 (one) time each day before breakfast. Max Daily Amount: 15 mg 30 each 5 025 Discontin ued(Side effects) oxyCODONE-aceta minophen (PERCOCET) 5-325 mg per tablet Take 1 tablet by mouth every 8 (eight) hours if needed for severe pain. Max Daily Amount: 3 tablets 84 tablet 5 025 Discontin ued(Reord er) Hospital, Clinic, or Other Facility Administered Medication Ordered Dose Route Frequency Start Date End Date Status ondansetron ODT (ZOFRAN-ODT) disintegrating tablet 4 mgIndications:Nausea 4 mg oral Once 04/30/2025 04/30/2025 Disc ontinued Active Problems Problem Noted Date Diagnosed Date History of thyroid cancer 07/29/2024 History of Helicobacter pylori infection 024 Constipation 07/21/2024 History of total thyroidectomy with radical neck dissection 07/21/2024 Lipoma 07/21/2024 Balance problem 12/30/2023 Overview (06/23/2024): Last Assessment & Plan: Sounds vestibular or possibly vertiginous in nature. Agree with neurology referral. Consider ENT referral. She will inquire about this herself. In addition, it is difficult to assess whether or not her anxiety is causing her symptoms or her symptoms are causing anxiety. Furthermore, given prior history of recurrent hives, possible angioedema, and constellation of symptoms-could consider a mast cell degranulation disorder. Would consider rereferral back to allergy/immunology. Syncope and collapse 06/03/2023 Overview (06/23/2024): - Had an ER visit for 1 such episode earlier this year when she went to [facility] ER-negative work-up - May or may not be related to the paroxysmal atrial tachycardia-it is difficult to say -Had another ER visit to [facility] for presyncopal symptoms in October 2023-again had a negative workup Last Assessment & Plan: I tried to be very clear. I do not think the more ongoing symptoms of feeling off balance with the other symptoms of nausea, vomiting, hives has anything to do with vasovagal phenomenon or POTS. I do think the original episode for which she presented to the ER may have been a vasovagal episode. She does not meet criteria for POTS-which would require a 30 bpm increase in heart rate with postural change or heart rate greater than 130 bpm with postural change. Furthermore, her symptoms are inconsistent with POTS. This sounds almost vestibular in nature-like vertigo. There is no family history that she knows of of M ni re's disease or anything similar. She does not have hyperflexibility suggestive of a hypermobility syndrome. I did give her some information about Memo maneuver exercises. Agree with neurology referral and possible ENT referral. I tried to reassure her that sometimes these confusing diagnoses can take a while to parse out and there is often not 1 simple answer. I encouraged her to continue her adequate oral hydration and try to do some more core and leg strengthening exercises that are close to the ground to avoid injury, and consider use of compression socks or stockings. For now, I agree with discontinuation of Florinef since she has not been taking it anyway and I do not want to cloud the picture. Continue low-dose metoprolol for palpitation symptoms. Palpitation 05/29/2023 Overview (06/23/2024): - Has had several instances of increasing frequency of palpitations-I saw her for this in 2019 but we were unable to document anything specific on monitoring around that time - She has since moved to [place] for a brief period for the past several years and started having palpitations again in 2021 - Had a repeat Holter monitor in November 2021 down there which showed sinus rhythm with a few episodes of atrial tachycardia-the longest being 23 beats, 1 ventricular triplet, overall low burden of atrial and ventricular ectopy - Echocardiogram on 12/13/2021 showed normal biventricular size and systolic function, normal left ventricular regional wall motion with an ejection fraction of 60 to 65%, normal left ventricular diastolic function, normal pulmonary artery systolic pressure, no hemodynamically significant valve disease - Was initially recommended to start metoprolol but around that time a follow-up with 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 [place], her thyroid function had normalized and her blood pressures were under better control and her symptoms had resolved so she held off - In February of this year, she ended up going to the ER at [facility]-she was out shopping when she suddenly felt very lightheaded like she was going to pass out- she allowed the sensation to pass and drove home-only after driving home did she develop sensation of palpitations described as a forceful beat followed by a pause and then another forceful beat - It was at this point that she saw her primary and initiated low-dose beta- blockade which seems to be helping symptoms-she has not had another episode of lightheadedness and her palpitation symptoms have improved dramatically Last Assessment & Plan: This seems to be secondary to worsening anxiety as opposed to a primary symptom. For now, to keep things simple we will keep her on current half dose of metoprolol 12.5 mg daily. Mixed hyperlipidemia 03/01/2023 Osteoarthritis of lumbar spine 03/01/2023 Angio-edema 06/30/2020 Recurrent urticaria 06/30/2020 Seasonal allergic rhinitis due to pollen 020 Chronic headache disorder 06/10/2017 Overview (06/23/2024): Onset in 's. Carpal tunnel syndrome 05/08/2017 GERD (gastroesophageal reflux disease) 7 IBS (irritable bowel syndrome) 09/09/2015 ADD (attention deficit disorder) 09/07/2015 Hypertension 09/07/2015 Overview (06/23/2024): Last Assessment & Plan: Well-controlled on current regimen of losartan 100 mg daily, hydrochlorothiazide 25 mg daily, metoprolol 12.5 mg daily; if she is to have symptoms of worsening lightheadedness or vasovagal phenomenon, recommended backing off on hydrochlorothiazide to facilitate beta-blockade for paroxysmal atrial tachycardia but for now, continue all 3 Hypothyroidism 09/07/2015 Overview (06/23/2024): Post surgical Major depression 09/07/2015 Overview (06/23/2024): Suicide ideation. IP admit 07/2011 LEOBARDO (obstructive sleep apnea) 09/07/2015 Overview (06/23/2024): CPAP Diverticulosis 02/09/2008 Overview (06/23/2024): 01/24 ct scan abd and pelvis 10/25 dr rahman Repeat screening colonoscopy in 10 years Resolved Problems Problem Noted Date Diagnosed Date Resolved Date Cellulitis of small toe of left foot 07/21/2024 07/29/2024 Diverticulosis of colon 07/21/202407/19 Overview (07/21/2024): [facility], on 01-24 CT Hand pain, left 07/21/2024 07/29/2024 Hypothyroidism, postsurgical 07/21/2024 07/29/2024 Metastatic malignant neoplas m ([facility] V24, [facility] V28) 07/21/2024 07/29/2024 Epigastric pain 06/23/2024 07/29/2024 Atrial paroxysmal tachycardia ([facility] V24) 02/09/2022 07/29/2024 Allergic rhinitis 11/01/2021 07/29/2024 Malignant tumor of thyroid g land ([facility] V24, [facility] V28) 11/01/2021 07/29/2024 Bacterial vaginosis 04/11/2021 07/29/20 Overview (06/23/2024): Last Assessment & Plan: Rx for Flagyl ePrescribed to pharmacy. Discussed with patient that medication may cause GI upset and disulfuram reaction. Patient to return if symptoms do not improve. Pelvic pain 04/11/2021 07/29/2024 Overview (06/23/2024): Last Assessment & Plan: Discussed potential causes of pelvic pain with the patient including infections, , ovarian cysts, endometriosis, interstitial cystitis, irritable bowel, and MSK etiologies. Wet prep positive for BV today. GC/CT collected. Pelvic US from 02/2021 WNL. Discussed functional ovarian cysts and mittelschmertz pain Discussed dysmenorrhea with menses and relief measures Discussed non-contraceptive benefits of BC Discussed relief measures for pain. Patient plans to start with Motrin/Tylenol and continue to monitor symptoms. 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 08/31/2024 Encounters Date Type Department Care Team Description 04/30/2025 4:15 PM EDT Office Visit [facility]-In [facility] - [address] [phone] Tre Alaniz NP Upper respiratory symptom (Primary Dx); Nausea; Palpitations; Epigastric pain 03/31/2025 11:15 AM EDT Office Visit [address] [phone] Larry Garcia MD Class 2 severe obesity due to excess calories with serious comorbidity and body mass index (BMI) of 39.0 to 39.9 in adult ([facility] V24, [facility] V28) (Primary Dx); Other osteoarthritis of spine, lumbar region; Other specified hypothyroidism; Mixed hyperlipidemia; Primary hypertension; Encounter for long-term (current) use of medications; Moderate episode of recurrent major depressive disorder ([facility]/HCC V24, [facility] V28) 03/22/2025 8:30 AM EDT Office Visit [address] [phone] Larry Garcia MD Adult general medical examination (Primary Dx); Other osteoarthritis of spine, lumbar region; Other specified hypothyroidism; Mixed hyperlipidemia 03/18/2025 Telephone Adult Medicine [address] [phone] Larry Garcia MD 03/04/2025 Telephone Adult [address] [phone] Larry Garcia MD 03/01/2025 Telephone Adult [address] [phone] Larry Garcia MD 02/23/2025 11:15 AM EDT Office Visit Adult [address] [phone] Larry Garcia MD Palpitation (Primary Dx); Primary hypertension; Mixed hyperlipidemia; Other specified hypothyroidism; Menopause from Last 3 Months Immunizations Name Administration Dates Next Due Hepatitis B (Jdlwpqs-H-Puoys , Recombivax HB-Adult) 19yo and older 02/22/2006 Influenza trivalent, 0.5mL, preservative free (Fluarix; FluLaval; Fluzone) ages 6mo and older (Afluria) 3 years and older 07/18/2015,08/25/2014,05/20/2013,08/15,05/08/2011 PPD Test 12/09/2007,02/22/2006 Pneumococcal polysaccharide 23 valent (Pneumovax 23) 2yo and older 10/30/2010 Td Tetanus diptheria (Tdvax) 7yo and older 02/27/2020,07/27/2009 Tdap Tetanus diptheria acell ular pertussis (Boostrix; Adacel) 7yo and older 10/17/2011 Surgical History Surgery Date Site/Laterality Comments COLONOSCOPY 11/16/2008 PROCEDURE: HISTORICAL COLONOSCOPY; COMMENT: Up to cecum, good preparation, normal colon exam THYROIDECTOMY 12/16/2013 PROCEDURE: HISTORICAL TOTAL THYROIDECTOMY; COMMENT: w/ radical neck dissection UPPER GASTROINTESTINAL ENDOSCOPY 11/14/2015 PROCEDURE: ME UPPER GI ENDOSCOPY PERFORMED; COMMENT: [facility]; gastric mucosal nodularity; irregular Z line; normal duodenum; biopsies positive for Helicobacter pylori gastritis, negative for Vital esophagus. 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/2015 DX:Agoraphobia with panic disorder Hx of papillary thyroid carcinoma 11/2013 DX:Hx of papillary thyroid carcinoma; COMMENT: Metastatic to lymph node LEOBARDO (obstructive sleep apnea) 09/07/2015 DX :LEOBARDO (obstructive sleep apnea) Hypertension 09/07/2015 DX:Hypertension ADD (attention deficit disorder) 09/07/2015 DX:ADD (attention deficit disorder) IBS (irritable bowel syndrome) 09/09/2015 D X:IBS (irritable bowel syndrome) History of Helicobacter pylo ri infection 05/07/2017 DX:History of Helicobacter p ylori infection; COMMENT: Identification at endoscopy 11/14/2015; treatment 2; subsequent stool testing all negative in the [facility] laboratory on 02/01/2016, 07/20/2016, 02/16/2017. Carpal tunnel syndrome 05/08/2017 DX:Carpal tunnel syndrome Major depression 09/07/2015 DX:Major depres espernaza Diverticulosis 02/09/2008 DX:Diverticulosi s; COMMENT: 01/24 ct scan abd and pelvis 10/25 dr rahman Repeat screening colonoscopy in 10 years GERD (gastroesophageal reflu x disease) DX:GERD (gastroesophageal re flux disease) Hypothyroidism 11/2013 DX:Hypothyroidis m; COMMENT: post surgical Chronic headache disorder 06/10/2017 DX:Chr onic headache disorder; COMMENT: Onset in 30's. Epigastric pain DX:Epigastric pa in Nausea DX:Nausea Hypertension 09/07/2015 Epigastric pain 06/23/2024 Malignant tumor of thyroid g land ([facility] V24, [facility] V28) 11/01/2021 Cellulitis of small toe of left foot 07/21/2024 Bacterial vaginosis 04/11/2021 Last Assessm ent & Plan: Rx for Flagyl ePrescribed to pharmacy. Discussed with patient that medication may cause GI upset and disulfuram reaction. Patient to return if symptoms do not improve. Microcytic anemia 05/05/2018 Family History Medical History Relation Name Comments No Known Problems Daughter Other: Other Father No contact; he art problem Hypertension Maternal Grandmother Heart attack Mother Fatal [place] - HTN, LEOBARDO,DM, Thyroid disease, Bipolar Crohn's disease Mother's side Maternal Un jeff, Cousin Breast cancer Other 1 cousin - maternal Chemo/Rad iation Colon cancer Other 2 cousin - mother Heart attack Paternal Grandfather Other: Other Paternal Grandmother old age - 90's Other: ADD/ADHD Son 1 Bipolar No Known Problems Son 2 Ovarian cancer Neg Hx Relation Name Status Comments Daughter Alive Father Other Maternal Grandmother Alive Mother (Age 54) [place] Mother's side Alive Other 1 cousin - maternal Alive Other 2 cousin - mother Alive Paternal Grandfather Paternal Grandmother Son 1 Alive Son 2 Alive Social History Tobacco Use Types Packs/Day Years Used Date Smoking Tobacco: Former Cigarettes 0.1 32.6 0 1987 - 07/04/2020 Smokeless Tobacco: Never Tobacco Cessation:Counseling Given: Not Answered Alcohol Use Standard Drinks/Week Comments Not Currently [...] for your loved ones. For example, childcare teacher or elderly care for an older adult? [...] on file Sexual Orientation Not on file Obstetrics History Para Term AB IAB SAB Ectopic Multiple Livin g Live Births 3 Last Filed Vital Signs Vital Sign Reading Time Taken Comments Blood Pressure 125/81 04/30/2025 4:28 PM EDT Pulse 102 04/30/2025 4:28 PM EDT Temperature 36.2 C (97.2 F) 04/30/2025 4:28 PM EDT Respiratory Rate 16 03/31/2025 11:1 6 AM EDT Oxygen Saturation 98% 04/30/2025 4:28 PM EDT Inhaled Oxygen Concentration - - Weight 88.4 kg (194 lb 12.8 oz) 025 11:16 AM EDT Height 149.9 cm (4' 11 ) 03/31/2025 11: 16 AM EDT Body Mass Index 39.34 03/31/2025 11:16 AM EDT Plan of Treatment Upcoming Encounters Date Type Department Care Team (Late st Contact Info) Description 05/11/2025 1:00 PM EDT Office Visit Adult Medicine [facility] [address] [place], [place] [phone] Larry Garcia MD [address] [place], [place] Health Maintenance Due Date Last Done Comments Medicare Annual Wellness Visit 07/28/2022 Cervical Cancer Screening: Pap Smear 09/07/2022 09/07/2019 Influenza Vaccine (#1) 2025 5, 08/25/2014, 05/20/2013, Additional history exists Hypertension/CHF/CAD Annual BMP Blood Test 07/31/2025 07/31/2024, 04/17/2024 Social Influencers of Health Screening 02/23/2026 02/23/2025 Breast Cancer Screening 10/14/2026 10/14/19 25, 10/14/2024, 12/31/2020, Additional history exists Cholesterol Screening (Lipid Panel) 07/31/2029 07/31/2024, 04/17/2024 Colorectal Cancer Screening: Colonoscopy 09/24/2029 09/24/2019 DTaP,Tdap,and Td Vaccines (4 - Td or Tdap) 02/26/2030 02/27/2020, 10/17/2011, 07/27/2009 Hepatitis B Vaccines Discontinued 02/22/2006 Pneumococcal Vaccine: Pediatrics (0 to 5 Years) and At-Risk Patients (6 to 49 Years) Aged Out 10/30/2010 No longer eligible based on patient's age to complete this topic HIV Screening Completed 07/31/2024 Hepatitis C Screening Completed 07/31/2024 Depression Screening Completed 02/23/2025 COVID-19 Vaccine Discontinued HIB Vaccines Aged Out No longer eligi ble based on patient's age to complete this topic HPV Vaccines Aged Out No longer eligi ble based on patient's age to complete this topic Hepatitis A Vaccines Aged Out No long er eligible based on patient's age to complete this topic IPV Vaccines Aged Out No longer eligi ble based on patient's age to complete this topic MMR Vaccines Aged Out No longer eligi ble based on patient's age to complete this topic Meningococcal ACWY Vaccine Aged Out N o longer eligible based on patient's age to complete this topic Meningococcal B Vaccine Aged Out No l onger eligible based on patient's age to complete this topic RSV Immunization Patients Under 20 months Aged Out No longer eligible based on patient's age to complete this topic Varicella Vaccines Aged Out No longer eligible based on patient's age to complete this topic Procedures Procedure Name Priority Date/Time Associated Diagnosis Comments ECG 12-LEAD Routine 04/30/2025 5:34 PM EDT Palpitations POC RAPID [id number], MOLECULAR Routine 04/30/2025 4:56 PM EDT Upper respiratory symptom HOME SLEEP TEST Routine 04/01/2025 1:49 PM EDT THYROID STIMULATING HORMONE WITH REFLEX TO FREE T4 AND FREE T3 Routine 03/08/2025 9:58 AM EDT Other specified hypothyroidism EXTERNAL XRAY REPORT 03/08/2025 MG MAMMO DIGITAL SCREENING W PALOMO BILAT Routine 10/14/2024 3:18 PM EST Encounter for screening mammogram for breast cancer HEPATITIS C ANTIBODY Routine 07/31/2024 10:26 AM EST Need for hepatitis C screening test HIV 1, 2 ANTIBODY, P24 ANTIGEN WITH REFLEX TO DIFFERENTIATION Routine 07/31/2024 10:26 AM EST Encounter for screening for HIV COMPREHENSIVE METABOLIC PANEL Routine 07/31/2024 10:26 AM EST Primary hypertension Mixed hyperlipidemia LIPID PANEL WITH REFLEX TO DIRECT LDL Routine 07/31/2024 10:26 AM EST Mixed hyperlipidemia PAP SMEAR Routine 09/07/2019 from Last 3 Months or Most Recently Relevant to Health Maintenance Results * ECG 12 lead (04/30/2025 5:34 PM EDT) Tre Alaniz NP ECG ORDERABLES Edited Result - Final * Poc Rapid [id number], MOLECULAR (04/30/2025 4:56 PM EDT) COVID-19/SARS- COV-2 Rapid POC Negative Negative Swab Nasopharyngeal structure / Unknown 04/30/2025 4:56 PM EDT Tre Alaniz NP POINT OF CARE TEST ENTER/EDIT ORDERABLES Final Result * Home sleep test (04/01/2025 1:49 PM EDT) Historical Provider [facility] ORDERABLES F inal Result * Thyroid stimulating hormone with reflex to free t4 and free t3 (03/08/2025 9:58 AM EDT) Pathologist [facility] TSH 1.04 0.40 - 4.00 mcIU/mL LAB CHEMISTRY METHOD 03/08/2025 2:05 PM EDT [facility] Blood Venous blood specimen / Unknown Venipuncture / Unknown 03/08/2025 9:58 AM EDT 03/08/2025 9:58 AM EDT Larry Garcia MD LAB BLOOD ORDERABLES F inal Result [facility] [address] [place] [address], [place] [phone] * External Xray Report (03/08/2025) Anatomical Region Laterality Modality Radiographic Leticia ging Provider [facility] XR PROCEDURES Final Result * MG Mammo Digital Screening w Palomo bilat (10/14/2024 3:18 PM EST) Anatomical Region Laterality Modality Breast Bilateral Mammography 10/15/2024 3:56 PM EST Impressions 10/15/2024 4:00 PM EST No mammographic evidence of malignancy. No suspicious interval change. A negative mammogram in the presence of a clinically suspicious palpable abnormality does not preclude the possibility of malignancy or alter the indications for biopsy. ASSESSMENT: BI-RADS 2: BENIGN RECOMMENDATION(S): 1: Routine screening mammogram BILATERAL in 1 year. [facility]amm[facility] location[facility] [address], [address] -------- FINAL REPORT -------- Dictated By: Tavo Galarza Dictated Date: 10/15/2024 15:56 ET Assigned Physician: Tavo Galarza Reviewed and Electronically Signed By: Tavo Galarza Signed Date: 10/15/2024 16:00 ET Workstation ID: [id number] Transcribed By: Self Edit Transcribed Date: 10/15/2024 15:56 ET Narrative 10/15/2024 4:00 PM EST EXAM: SCREENING MAMMOGRAPHY, BILATERAL HISTORY: SCREENING. Breast reduction surgery 2009 COMPARISON: 12/31/2020 TECHNIQUE: Synthesized CC and MLO projections of each breast. Tomosynthesis of each breast in the CC and MLO projections. ADDITIONAL IMAGING: None Computer-aided detection was employed with the [employer] AI 3-D. TISSUE DENSITY: There are scattered areas of fibroglandular density. (BI-RADS category B) FINDINGS: RIGHT BREAST: Stable pattern consistent with prior reduction surgery. No additional suspicious right breast findings LEFT BREAST: Stable pattern consistent with prior reduction surgery. No additional suspicious left breast findings Procedure Note Tavo Galarza MD - 10/15/2024 EXAM: SCREENING MAMMOGRAPHY, BILATERAL HISTORY: SCREENING. Breast reduction surgery 2009 COMPARISON: 12/31/2020 TECHNIQUE: Synthesized CC and MLO projections of each breast.Tomosynthesis of each breast in the CC and MLO projections. ADDITIONAL IMAGING: None Computer-aided detection was employed with the [employer] AI 3-D. TISSUE DENSITY: There are scattered areas of fibroglandular density.(BI-RADS category B) FINDINGS: RIGHT BREAST: Stable pattern consistent with prior reduction surgery. No additionalsuspicious right breast findings LEFT BREAST: Stable pattern consistent with prior reduction surgery. No additionalsuspicious left breast findings IMPRESSION: No mammographic evidence of malignancy. No suspicious interval change. A negative mammogram in the presence of a clinically suspicious palpableabnormality does not preclude the possibility of malignancy or alter theindications for biopsy. ASSESSMENT: BI-RADS 2: BENIGN RECOMMENDATION(S): 1: Routine screening mammogram BILATERAL in 1 year. Mammography location: [facility] [address] [place], [address] -------- FINAL REPORT -------- Dictated By: Tavo Galarza Dictated Date: 10/15/2024 15:56 ET Assigned Physician: Tavo Galarza Reviewed and Electronically Signed By: Tavo Galarza Signed Date: 10/15/2024 16:00 ET Workstation ID: [id number] Transcribed By: Self Edit Transcribed Date: 10/15/2024 15:56 ET us Self Referral Sppl IMG BI PROCEDURES Final Resul t * Hepatitis C antibody (07/31/2024 10:26 AM EST) Pathologist [facility] Hepatitis C Antibody Negative Negative LAB CHEMISTRY METHOD 07/31/2024 5:08 PM EST [facility] Blood Venous blood specimen / Unknown Venipuncture / Unknown 07/31/2024 10:26 AM EST 07/31/2024 10:26 AM EST Larry Garcia MD LAB BLOOD ORDERABLES F inal Result [facility] [address] [place] [address], * HIV 1,2 antibody, p24 antigen with reflex to differentiation (07/31/2024 10:26 AM EST) HIV Combo AB/AG Negative Negative LAB CHEMISTRY METHOD 07/31/2024 5:09 PM EST [facility] Blood Venous blood specimen / Unknown Venipuncture / Unknown 07/31/2024 10:26 AM EST 07/31/2024 10:26 AM EST Narrative [facility] - 07/31/2024 5:09 PM EST This assay is a 4th generation assay allowing for earlier detection of HIV infection by detecting the presence of the HIV-1 p24 antigen as well as the traditional antibodies to HIV type 1 (including group O) and type 2. Use of a 4th generation assay is the current CDC recommendation for HIV screening. us Larry Garcia MD LAB BLOOD ORDERABLES F inal Result Performing Organization Address City/[facility]/ZIP Co de Phone Number [facility] [address] [place] [address], [place] [phone] * (ABNORMAL) Lipid panel with reflex to direct LDL (07/31/2024 10:26 AM EST) [facility] Signature Cholesterol 213(H) 0 - 200 mg/dL LAB CHEMISTRY METHOD 07/31/2024 4:33 PM EST [facility] Triglycerides 145 0 - 150 mg/dL LAB CHEMISTRY METHOD 07/31/2024 4:33 PM EST [facility] HDL 67 >=40 mg/dL LAB CHEMISTRY METHOD 07/31/2024 4:33 PM EST [facility] LDL Calculated 117(H) 0 - 100 mg/dL LAB CHEMISTRY METHOD 07/31/2024 4:33 PM EST [facility] VLDL Cholesterol Keith 29 mg/dL LAB CHEMISTRY METHOD 07/31/2024 4:33 PM EST [facility] Non HDL Chol. (LDL+VLDL) 146(H) <145 mg/dL LAB CHEMISTRY METHOD 07/31/2024 4:33 PM EST [facility] Chol/HDL Ratio 3.2 0.0 - 4.4 LAB CHEMISTRY METHOD 07/31/2024 4:33 PM [facility] Blood Venous blood specimen / Unknown Venipuncture / Unknown 07/31/2024 10:26 AM EST 07/31/2024 10:26 AM EST us Larry Garcia MD LAB BLOOD ORDERABLES F inal Result Performing Organization Address [facility]/ZIP Co de Phone Number [facility] [address] [place] [address], [place] [phone] * (ABNORMAL) Comprehensive metabolic panel (07/31/2024 10:26 AM EST) Sodium 141 133 - 145 mmol/L LAB CHEMISTRY METHOD 07/31/2024 4:33 PM [facility] Potassium 4.4 3.5 - 5.5 mmol/L LAB CHEMISTRY METHOD 07/31/2024 4:33 PM [facility] Chloride 103 96 - 110 mmol/L LAB CHEMISTRY METHOD 07/31/2024 4:33 PM [facility] CO2 33(H) 21 - 32 mmol/L LAB CHEMISTRY METHOD 07/31/2024 4:33 PM [facility] Anion Gap 5 3 - 11 LAB CHEMISTRY METHOD 07/31/2024 4:33 PM [facility] Glucose 92 70 - 100 mg/dL LAB CHEMISTRY METHOD 07/31/2024 4:33 PM [facility] BUN 9 5 - 25 mg/dL LAB CHEMISTRY METHOD 07/31/2024 4:33 PM [facility] Creatinine 0.78 0.50 - 1.10 mg/dL LAB CHEMISTRY METHOD 07/31/2024 4:33 PM [facility] eGFR 94 >=60 mL/min/1. 73m2 LAB CHEMISTRY METHOD 07/31/2024 4:33 PM [facility] Comment:Calculation based on the Chronic Kidney Disease Epidemiology Collaboration (CKD-EPI) equation refit without adjustment for race. BUN/Creatinine Ratio 11.5 LAB CHEMISTRY METHOD 07/31/2024 4:33 PM [facility] Calcium 9.6 8.5 - 10.5 mg/dL LAB CHEMISTRY METHOD 07/31/2024 4:33 PM [facility] AST (SGOT) 16 10 - 42 unit/L LAB CHEMISTRY METHOD 07/31/2024 4:33 PM [facility] ALT (SGPT) 24 10 - 60 unit/L LAB CHEMISTRY METHOD 07/31/2024 4:33 PM EST [facility] Alkaline Phosphatase 94 42 - 121 unit/L LAB CHEMISTRY METHOD 07/31/2024 4:33 PM EST [facility] Total Protein 7.4 6.0 - 8.0 g/dL LAB CHEMISTRY METHOD 07/31/2024 4:33 PM EST [facility] Albumin 4.1 3.2 - 5.0 g/dL LAB CHEMISTRY METHOD 07/31/2024 4:33 PM EST [facility] Total Bilirubin 0.4 0.0 - 1.4 mg/dL LAB CHEMISTRY METHOD 07/31/2024 4:33 PM EST [facility] Blood Venous blood specimen / Unknown Venipuncture / Unknown 07/31/2024 10:26 AM EST 07/31/2024 10:26 AM EST us Larry Garcia MD LAB BLOOD ORDERABLES F inal Result [facility] [address] [place] [address], * Pap smear (09/07/2019) 09/07/2019 Narrative HISTORICAL TESTING LAB RESULTING AGENCY - 09/10/2019 11:30 AM EST [id number] THINPREP PAP, IMAGED: NEGATIVE FOR SQUAMOUS INTRAEPITHELIAL LESION AND MALIGNANCY . KATELYNN ARIZA(ASCP) (CASE ELECTRONICALLY SIGNED 09 10 2019) RESULT OF APTIMA HIGH RISK HPV ASSAY: HIGH RISK HPV: NEGATIVE (SEROTYPES 16,18,31,33,35,39,45,51,52,56,58,59,66,68) COMPLETED ON 2019-09-08 ADEQUACY: SATISFACTORY ENDOCERVICAL/TRANSFORMATION ZONE COMPONENT ABSENT. SOURCE: THINPREP PAP HPV ANY DX: REFLEX 16 AND 18, CERVICAL, IMAGED CLINICAL INFORMATION: HPV ANY DIAGNOSIS. PAP HX NEG, Z12.4 [place] [facility] CYTOLOGY ORDERABLES Final Result HISTORICAL TESTING LAB RESULTING AGENCY from Last 3 Months or Most Recently Relevant to Health Maintenance Insurance [facility] [employer] Care Teams Campus Recruiting Intern Relationship Specialty Start Date End Date Larry Garcia MD [address] [place] [address] PCP - General 03/01/23
[2025-04-30 19:05] LABS: Alanine Aminotransferase 23 U/L (0-31); Albumin Level 4.8 g/dL (3.5-5.0); Alkaline Phosphatase 92 U/L (39-117); Anion Gap 12 (12-20); Aspartate Amino Transferase 23 U/L (5-31); Blood Urea Nitrogen 12 mg/dL (9-16); Calcium 9.7 mg/dL (8.4-10.2); Carbon Dioxide 30 mmol/L (22-29); Chloride 105 mmol/L (96-108); Creatinine Clr Calc Pharmacy 81.6; Estimated Glomerular Filt Rate > 60; Magnesium 2.2 mg/dL (1.6-2.6); Potassium 4.7 mmol/L (3.3-5.1); Sodium 142 mmol/L (135-145); Total Protein 7.6 g/dL (6.5-8.0)
[2025-04-30 19:09] LABS: Hematocrit 42.8 % (37.0-47.0); Hemoglobin 14.3 g/dl (12.0-16.0); Imm Gran Abs Auto 0.03 X10*3/uL (0.00-0.03); Imm Gran Pct Auto 0.4 % (0.0-0.4); Lymphocytes Absolute Auto 1.7 X10*3/uL (1.2-4.9); Mean Corpuscular HGB Conc 33.4 g/dl (31.0-35.0); Mean Corpuscular Hemoglobin 26.5 pg (27.0-33.0); Mean Corpuscular Volume 79.4 fL (80.0-98.0); NRBC Abs Auto 0.000 X10*3/uL (0.0-0.012); NRBC Pct Auto 0.0 /100WBC (0.0-0.2); Platelet Count 376 X10*3/uL (160-400); Red Blood Count 5.39 X10*6/uL (4.20-5.50); White Blood Count 7.8 X10*3/uL (4.8-10.8)
[2025-04-30 19:10] LABS: COVID-19 Test Negative (Negative); IDNOW Serial# 55D5AD1C; IDNOW Serial# 58CA691E
[2025-04-30 19:11] LABS: Influenza B2 Negative (Negative)
[2025-04-30 19:13] LABS: Troponin-I High Sensitivity < 2.7 ng/L (<3.5-17.0)
[2025-04-30 20:00] VITALS: BP 160/87; PULSE 84; RESP 16; TEMP 37; O2SAT 100
[2025-04-30 20:50] VITALS: BP 160/87; PULSE 84; RESP 16; TEMP 37; O2SAT 100
== END 2025-04-30 20:51 | disposition home or self-care (01) ==
PROVIDERS: Physician Assistant Medical; Emergency Provider Student in an Organized Health Care Education/Training Program; PCP Internal Medicine
DX: R00.2 Palpitations (principal); G90.A Postural orthostatic tachycardia syndrome [POTS]; Z79.899 Other long term (current) drug therapy
CPT/HCPCS: 36415; 71045; 80053; 83735; 84484; 85025; 87502; 87635; 93005; 99283; 99285

== ENCOUNTER → 2025-04-30 18:05 | Outpatient (BNV) | payer OTHER, SELFPAY | PROVIDERS: Emergency Provider Student in an Organized Health Care Education/Training Program; PCP Internal Medicine; Visit Provider Internal Medicine Cardiovascular Disease | DX: R94.31 Abnormal electrocardiogram [ECG] [EKG] (principal); R00.2 Palpitations | CPT/HCPCS: 93010 ==

== ENCOUNTER → 2025-04-30 20:15 | Outpatient (BNV) | payer OTHER, SELFPAY | PROVIDERS: Emergency Provider Student in an Organized Health Care Education/Training Program; PCP Internal Medicine; Visit Provider Student in an Organized Health Care Education/Training Program | DX: R00.2 Palpitations (principal) | CPT/HCPCS: 71045 ==

== ENCOUNTER → 2025-06-07 15:14 | Outpatient (BNVA) | payer OTHER, SELFPAY | PROVIDERS: PCP Internal Medicine; Visit Provider Emergency Medicine | DX: S00.81XA Abrasion of other part of head, initial encounter (principal); W22.03XA Walked into furniture, initial encounter; Z02.79 Encounter for issue of other medical certificate | CPT/HCPCS: 99202 ==